=== PATIENT | female | born 1995 | race Caucasian/White ===

== ENCOUNTER 2018-06-28 15:49 | Emergency (ER) | payer OTHER ==
--- NOTE | 2018-06-28 16:04 | PDOC ---
Rapid Medical Evaluation Time Seen by Provider: 06/28/18 16:01 Medical Evaluation: 06/28/18 16:01 I have performed a brief in-person evaluation of this patient. The patient presents with a chief complaint of: abdominal pain x20 minutes 11 weeks gravid, Pertinent physical exam findings:NAD I have ordered the following:Beta HCG, CBC, CMP, PT, INR Type and Screen Discharge Disposition - Diagnosis Abdominal pain affecting - Referrals - Patient Instructions - Post Discharge Activity
[2018-06-28 16:05] VITALS: BMI 24.0
--- NOTE | 2018-06-28 16:36 | PDOC ---
History of Present Illness - General History Source: Patient - History of Present Illness Timing/Duration: reports: resolved prior to arrival <KaiaMickiTamiko - Last Filed: 06/28/18 18:08> <Blanco Flores - Last Filed: 07/01/18 19:51> - General Chief Complaint: Pain Stated Complaint: ABD PAIN 12WKS Time Seen by Provider: 06/28/18 16:01 Past History - Suicide/Smoking/Psychosocial Hx Smoking History: Never smoked Hx Alcohol Use: No Drug/Substance Use Hx: No <Micki MartiMariannaKaron - Last Filed: 06/28/18 18:08> <Blanco Flores - Last Filed: 07/01/18 19:51> - Past Medical History Allergies/Adverse Reactions: Allergies Allergy/AdvReac Type Severity Reaction Status Date / Time No Known Allergies Allergy Verified 06/28/18 16:01 Home Medications: Ambulatory Orders Nitrofurantoin Monohyd/M-Cryst [Macrobid -] 100 mg PO BID #14 capsule 06/28/18 Review of Systems - Review of Systems Constitutional: No: Chills, Fever ABD/GI: Yes: Abdominal cramping. No: Nausea, Vomiting : No: Burning, Dysuria, Discharge, Flank Pain, Hematuria <Micki MartiTamiko - Last Filed: 06/28/18 18:08> *Physical Exam - Vital Signs Last Vital Signs Temp Pulse Resp BP Pulse Ox 98.5 F 95 H 18 130/82 100 06/28/18 16:02 06/28/18 16:02 06/28/18 16:02 06/28/18 16:02 06/28/18 16:02 - Physical Exam General Appearance: Yes: Appropriately Dressed. No: Apparent Distress HEENT: positive: Normal Voice Neck: positive: Supple Gastrointestinal/Abdominal: positive: Soft. negative: Tender Musculoskeletal: negative: CVA Tenderness Integumentary: positive: Dry, Warm Neurologic: positive: Fully Oriented, Alert, Normal Mood/Affect <KaiaMickiTamiko - Last Filed: 06/28/18 18:08> - Vital Signs Last Vital Signs Temp Pulse Resp BP Pulse Ox 98.2 F 75 16 125/70 99 06/28/18 18:48 06/28/18 18:48 06/28/18 18:48 06/28/18 18:48 06/28/18 18:48 <Blanco Flores - Last Filed: 07/01/18 19:51> Moderate Sedation - Procedure Monitoring Vital Signs: Procedure Monitoring Vital Signs Temperature 98.5 F 06/28/18 16:02 Pulse Rate 95 H 06/28/18 16:02 Respiratory Rate 18 06/28/18 16:02 Blood Pressure 130/82 06/28/18 16:02 O2 Sat by Pulse Oximetry (%) 100 06/28/18 16:02 <January Marti - Last Filed: 06/28/18 18:08> ED Treatment Course - Medications Given in the ED: ED Medications Discontinued Medications Generic Name Dose Route Start Last Admin Trade Name Patrick PRN Reason Stop Dose Admin Acetaminophen 650 mg 06/28/18 16:37 06/28/18 17:48 Tylenol - PO 06/28/18 16:38 650 mg ONCE ONE Administration <Blanco Flores - Last Filed: 07/01/18 19:51> Medical Decision Making - Medical Decision Making 06/28/18 16:35 22 to F, , ~11 weeks , s/p last US 2 weeks ago in clinic w/ + IUP w / FHR per pt, no issues w/ so far, here with lower abdominal discomfort today at work that has since resolved. Reports no vaginal bleeding, dysuria, nausea, vomiting, fever or chills. Next OB appt is on 07/08/18 per pt See exam 1st trimester abd pain Since resolved +IUP w/ FHR on US 2 weeks ago per pt No vag bleed or dysuria Exam unremarkable here -check ua -anticipate dc w/ continued OB f/u 06/28/18 18:07 Pt declined to wait for her urine. Would like a call back at [phone]. Discharged in stable condition to f/u with her OB <January Marti - Last Filed: 06/28/18 18:08> *DC/Admit/Observation/Transfer <January Marti - Last Filed: 06/28/18 18:08> <Blanco Flores - Last Filed: 07/01/18 19:51> Diagnosis at time of Disposition: Abdominal pain affecting - Discharge Dispostion Disposition: HOME Condition at time of disposition: Good - Prescriptions Prescriptions: Nitrofurantoin Monohyd/M-Cryst [Macrobid -] 100 mg PO BID #14 capsule - Patient Instructions Printed Discharge Instructions: DI for Abdominal Pain -- Early Additional Instructions: You were seen for abdominal pain today that resolved prior to ED visit. We will contact you with urine results Please continue to follow-up with your OB
[2018-06-28] MEDS ORDERED: ACETAMINOPHEN 325 MG TABLET (FP) PO ONE (16:37)
[2018-06-28] MEDS ORDERED: ACETAMINOPHEN 325 MG TABLET (FP) ONE (17:34)
[2018-06-28 18:23] LABS: EPI CELLS 10.6 /HPF (0-5); HYALINE CASTS 8 /hpf (0-8); URINE APPEARANCE CLOUDY; URINE BACTERIA 504.216 /hpf (NEGATIVE); URINE BILIRUBIN NEGATIVE (<2.0 mg/dL); URINE COLOR YELLOW; URINE GLUCOSE (UA) NEGATIVE (NEGATIVE); URINE KETONE NEGATIVE (NEGATIVE); URINE LEUK ESTERASE 3+ (NEGATIVE); URINE NITRITE NEGATIVE (NEGATIVE); URINE PROTEIN NEGATIVE (NEGATIVE); URINE UROBILINOGEN 0.2 mg/dL (0.2-1.0); URINE WBC 123 /hpf (0-5)
[2018-06-28 18:45] LABS: URINE RBC 7.2 /hpf (0-4)
[2018-06-28 18:49] VITALS: BP 125/70; PULSE 75; TEMP 98.2
== END 2018-06-28 18:50 | disposition home or self-care (01) ==
LOC: JER 15:49
DX: O26.891 Other specified pregnancy related conditions, first trimester (principal); Z3A.12 12 weeks gestation of pregnancy; R10.9 Unspecified abdominal pain
CPT/HCPCS: 81003; 99282-25

== ENCOUNTER 2019-01-06 12:45 | Inpatient (IN) | payer OTHER ==
[2019-01-06 16:06] LABS: HEMATOCRIT 33.8 % (32.4-45.2); HEMOGLOBIN 11.1 GM/dL (10.7-15.3); MCH 27.6 pg (25.7-33.7); MCHC 32.9 g/dl (32.0-36.0); MEAN CELL VOLUME 83.8 fl (80-96); MEAN PLT VOLUME 9.7 fl (7.5-11.1); PLATELET COUNT 176 K/MM3 (134-434); RBC 4.03 M/mm3 (3.60-5.2); WHITE BLOOD COUNT 8.5 K/mm3 (4.0-10.0)
[2019-01-06 16:37] LABS: ALBUMIN 2.4 g/dl (3.4-5.0); BILIRUBIN,TOTAL 0.2 mg/dL (0.2-1); CALCIUM 8.5 mg/dL (8.5-10.1); CREATININE 0.3 mg/dL (0.55-1.3); POTASSIUM 4.1 mmol/L (3.5-5.1); TOT PROT 5.3 g/dl (6.4-8.2); URIC ACID 4.2 mg/dL (2.6-7.2)
[2019-01-06 17:02] LABS: URINE APPEARANCE TURBID; URINE COLOR DK YELLOW
[2019-01-06 17:03] LABS: URINE BILIRUBIN 2+ (NEGATIVE); URINE GLUCOSE (UA) 2+ (NEGATIVE); URINE KETONE TRACE (NEGATIVE)
[2019-01-06 17:04] LABS: URINE NITRITE NEGATIVE (NEGATIVE); URINE PROTEIN 4+ (NEGATIVE)
[2019-01-06 17:05] LABS: EPI CELLS 38.6 /HPF (0-5/HPF); HYALINE CASTS 461.91 /lpf (0-8); URINE BACTERIA 473.8 /hpf (NEGATIVE); URINE LEUK ESTERASE 1+ (NEGATIVE); URINE RBC 7.9 /hpf (0-4); URINE WBC 158.1 /hpf (0-5); YEAST NONE SEEN (NEGATIVE)
[2019-01-06] MEDS ORDERED: LABETALOL HCL 200 MG TABLET (FP) PO SCH (18:00)
[2019-01-06] MEDS ORDERED: FLUCONAZOLE 150 MG TABLET PO ONE (18:00)
--- NOTE | 2019-01-06 18:11 | HP ---
Past Medical History - Primary Care Physician PCP:: Raimundo Puentes (uncovered patient) - Admission Chief Complaint: Patient presenting for rule out labor History of Present Illness: She reports mild headache and leg swelling for the last 2 weeks. She denies LOF , VB and RUQ pain History Source: Patient Limitations to Obtaining History: No Limitations - Past Medical History OPERATIONS/DISPATCH: No: Alzheimer's, CVA, Dementia, Migraine, Multiple Sclerosis, Peripheral Neuropathy, Parkinson's, Seizure, Syncope, TIA, Vertigo, Other Cardiovascular: No: AFIB, Aneurysm, Aortic Insufficiency, Aortic Stenosis, CAD, CHF, Deep Vein Thrombosis, HTN, Hyperlipdemia, ID, Mitral Insufficiency, Mitral Stenosis, Murmur, Pulmonary Hypertension, Other Pulmonary: No: Asthma, Bronchitis, Cancer, COPD, O2 Dependent, Pneumonia, Previously Intubated, Pulmonary Embolus, Pulmonary Fibrosis, Sleep Apnea, Other Gastrointestinal: No: Ascites, Cancer, Constipation, Crohn's Disease, Diverticulitis, Diverticulosis, Esophageal Varices, Gastritis, GERD, GI Bleed, Hemorrhoids, Hiatal Hernia, Inflamatory Bowel Disease, Irritable Bowel Disease, Pancreatitis, Peptic Ulcer Disease, Ulcerative Colitis, Other Hepatobiliary: No: Cirrhosis, Cholelithiasis, Cholecystitis, Choledocholithiasis , Hepatitis A, Hepatitis B, Hepatitis C, Other Renal/: No: Renal Failure, Renal Inusuff, BPH, Cancer, Hematuria, Hemodialysis , Neurogenic Bladder, Renal Calculi, UTI, Other Reproductive: No: Ectopic , Endometriosis, Fibroids, PID, Polycystic Ovary Syndrome, Postmenopausal, Other ...: 2 ...Para: 0 ...Term: 0 ...: 0 ...Spon : 0 ...Induced : 1 ...LMP: 04/13/18 ... Weeks Gestation by Dates: 38.2 ...EDC by Dates: 01/18/19 ...EDC by Sono: 01/17/19 Heme/Onc: No: Anemia, B12 Deficiency, Bleeding Disorder, Cancer, Current Chemotherapy, Current Radiation Therapy, Hemochromatosis, Hypercoaguable State, Myeloproliferative Synd, Sickle Cell Disease, Sickle Cell Trait, Thrombocytopenia, Other Infectious Disease: No: AIDS, C-Diff, Herpes Zoster, HIV, MRSA, STD's, Tuberculosis, VREF, Other Psych: No: Addictions, Anxiety, Bipolar, Depression, Panic, Psychosis, Schizophrenia, Other Musculoskeletal: No: Bursitis, Chronic low back pain, Hemiparesis, Hemiplegia, Osteoarthritis, Paraplegia, Other Rheumatology: No: Fibromyalgia, Gout, Lupus, Rheumatoid Arthritis, Sarcoidosis, Vasculitis, Other ENT: No: Allergic Rhinitis, Sinusitis, Other Endocrine: No: Swain's Disease, Miranda's Disease, Diabetes Insipidus, Diabetes Mellitus, Hyperparathyroidism, Hyperthyroidism, Hypothyroidism, Osteopenia, SIADH, Other Dermatology: No: Basal Cell, Cellulitis, Eczema, Melanoma, Psoriasis, Squamous Cell, Other - Past Surgical History Hx Myomectomy: No Hx Transabdominal Cerclage: No Additional Surgical History: liposuction - Smoking History Smoking history: Never smoked - Alcohol/Substance Use Hx Alcohol Use: No History of Substance Use: reports: None Home Medications - Allergies Allergies/Adverse Reactions: Allergies Allergy/AdvReac Type Severity Reaction Status Date / Time No Known Allergies Allergy Verified 01/06/19 13:47 - Home Medications Home Medications: Ambulatory Orders Vits96/Iron Fum/Folic [ Tablet] 1 tab PO DAILY 01/06/19 Family Medical History Family History: Unremarkable Review of Systems - Review of Systems Constitutional: reports: No Symptoms Eyes: reports: No Symptoms HENT: reports: Nasal Congestion, Other (headache) Neck: reports: No Symptoms Cardiovascular: reports: No Symptoms Respiratory: reports: No Symptoms Gastrointestinal: reports: No Symptoms Genitourinary: reports: No Symptoms Breasts: reports: No Symptoms Reported Musculoskeletal: reports: No Symptoms, Other (lE edema) Integumentary: reports: No Symptoms Neurological: reports: No Symptoms Endocrine: reports: No Symptoms Hematology/Lymphatic: reports: No Symptoms Psychiatric: reports: No Symptoms Physical Exam - Maternity Vital Signs: Vital Signs Temperature 98.0 F 01/06/19 13:34 Pulse Rate 89 01/06/19 17:04 Respiratory Rate 18 01/06/19 17:04 Blood Pressure 159/127 H 01/06/19 17:04 O2 Sat by Pulse Oximetry (%) Constitutional: Yes: Calm HENT: Yes: Atraumatic Neck: Yes: Supple Cardiovascular: Yes: Regular Rate and Rhythm Breast(s): Yes: Other - Abdominal Exam/OB Number of Fetuses: Single Presentation: Vertex Contractions: No Regularity: Irritability Monitor Mode: External Heart Rate (range): 130 Category: I Accelerations: Uniform Decelerations: None - Vaginal Exam/OB Vaginal Bleediing: No Speculum Exam: Yes (swabs obtained, suspicious for theron) Dilatation (cm): 1 Effacement (%): 30 Amniotic Membrane Status: Intact Presentation: Vertex/Position (sutures palpated, ballotable) Station: -3 - Physical Exam Musculoskeletal: Yes: WNL Extremities: Yes: WNL Edema: Yes Edema: LLE: 2+, RLE: 2+ Integumentary: Yes: WNL Deep Tendon Reflex Grade: Normal +2 ...Motor Strength: WNL Psychiatric: Yes: Alert, Oriented - Labs Lab Results: CBC, BMP 01/06/19 15:00 01/06/19 15:00 Imaging - Results Ultrasound: Report Reviewed Assessment/Plan 23 y/o @ 38.2wks by LMP consistent with 1st trimeter ultrasound, not in active labor, uncovered patient. Partial records and poor historian. Labile BP on admission, mild headache and LE edema, proteinuria. Patient was counseled regarding IOL and its risks and complication. Hypertensive disordered of explained as indication for induction . -labetalol 200 BI -diflucan -BP monitoring -IOL with cytotec PO
[2019-01-06] MEDS: ELECTROLYTE-148 SOLN 1,000 ML IV SCH (18:20)
[2019-01-06 18:43] VITALS: BMI 23.6
[2019-01-06] MEDS: MISOPROSTOL 25 MCG TABLET (COMPOUNDED BY PHARMACY) PO SCH (21:40)
[2019-01-06 23:37] LABS: COCAINE, UR NEGATIVE ng/ml (CUTOFF=300); METHADONE, UR NEGATIVE ng/ml (CUTOFF=300); OPIATES, URI NEGATIVE ng/ml (CUTOFF=300); PHENCYCLIDINE,URINE NEGATIVE ng/ml (CUTOFF=25); URINE BARBITURATES NEGATIVE ng/ml (CUTOFF=200); URINE BENZODIAZEPINES NEGATIVE ng/ml (CUTOFF=200)
[2019-01-07 00:06] LABS: URINE AMPHETAMINES POSITIVE ng/ml (CUTOFF=500)
[2019-01-07] MEDS: MISOPROSTOL 25 MCG TABLET (COMPOUNDED BY PHARMACY) PO SCH ×3 (01:40→09:35)
[2019-01-07] MEDS ORDERED: LABETALOL HCL 200 MG TABLET (FP) ONE (04:33)
[2019-01-07] MEDS ORDERED: BUTORPHANOL TARTRATE 1 MG/ML VIAL ONE ×2 (05:07)
[2019-01-07] MEDS ORDERED: BUTORPHANOL TARTRATE 1 MG/ML VIAL IVPB ONE (05:45)
[2019-01-07] MEDS: ELECTROLYTE-148 SOLN 1,000 ML IV SCH ×2 (06:00→09:36)
[2019-01-07] MEDS: LABETALOL HCL 200 MG TABLET (FP) PO SCH ×2 (06:00→17:09)
--- NOTE | 2019-01-07 08:09 | PN ---
Ante-Partal Exam - Subjective Subjective: Patient evaluated for pain Vital Signs: Vital Signs Temperature 98.1 F 01/07/19 07:00 Pulse Rate 85 01/07/19 06:00 Respiratory Rate 20 01/07/19 06:00 Blood Pressure 135/92 01/07/19 06:00 O2 Sat by Pulse Oximetry (%) Bleeding: No Headache: No Visual changes: No Right upper quadrant pain: No - Contractions Contractions: Yes Regularity: Regular Intensity: Strong Monitor Mode: External - Exam during Labor Heart Rate: 130 (cat I) Variability: Moderate Category: I Monitor Accelerations: Present Monitor Decelerations: None Exam: Vaginal Dilatation (cm): 6 Effacement (%): 90 Amniotic Membrane Status: Bulging Presentation: Vertex Station: -3 - Assessment/Plan Assessment/Plan: 23 y/o @ 38.3wks, IOL due to mild PEC, asymptomatic, BP in normal to mild range, reassuring status, desiring epidural. -Epidural is OK -Expectant management -Patient signed out to covering attending
[2019-01-07] MEDS ORDERED: FENTANYL/BUPIVACAINE/NS/PF - PCEA - 50 ML DISP.SYRIN EP ONE ×2 (08:27→13:34)
[2019-01-07] MEDS ORDERED: NALOXONE HCL 0.4 MG/ML VIAL IVPUSH PRN (08:28)
[2019-01-07 08:42] LABS: HEMATOCRIT 33.6 % (32.4-45.2); MCH 27.5 pg (25.7-33.7); MCHC 32.6 g/dl (32.0-36.0); MEAN CELL VOLUME 84.1 fl (80-96); MEAN PLT VOLUME 9.6 fl (7.5-11.1); PLATELET COUNT 208 K/MM3 (134-434); RBC 3.99 M/mm3 (3.60-5.2); RDW 14.3 % (11.6-15.6); WHITE BLOOD COUNT 13.3 K/mm3 (4.0-10.0)
[2019-01-07] MEDS: FENTANYL/BUPIVACAINE/NS/PF - PCEA - 50 ML DISP.SYRIN EP SCH (09:15)
--- NOTE | 2019-01-07 09:25 | PN ---
Progress Note (short form) - Note Progress Note: utility manager requested repeat CBC prior to epidural. Discussion regarding elevated BPs due to likely pain had with anesthesiologist. BPs will be monitored after epidural.
--- NOTE | 2019-01-07 13:27 | PN ---
Progress Note, Labor Vaginal Exam #3 Labor Exam Date: 01/07/19 Labor Exam Time: 13:26 Heart Rate (range): Cat I Dilatation: 9 Effacement (%): 100 Amniotic Membrane Status: Ruptured Presentation: Vertex/Position Station: 0 Remarks: Pt comfortable AROM, clears Anticipate Stevie Masters MD
[2019-01-07] MEDS ORDERED: OXYTOCIN 20 UNITS in 0.9% NS 20 UNIT/1,000 ML INFUS.BAG IV ONE ×2 (14:20→15:58)
[2019-01-07] MEDS: OXYTOCIN 20 UNITS in 0.9% NS 20 UNIT/1,000 ML INFUS.BAG IV SCH ×2 (14:25→16:01)
[2019-01-07] MEDS ORDERED: BISACODYL 10 MG SUPP.RECT RC PRN (14:32)
[2019-01-07] MEDS ORDERED: BENZOCAINE 28 GM HEMORRHOIDAL OINTMENT TP PRN (14:32)
[2019-01-07] MEDS ORDERED: IBUPROFEN 600 MG TABLET (FP) PO PRN (14:32)
[2019-01-07] MEDS ORDERED: BENZOCAINE 20% 57 GM BOTTLE TP PRN (14:32)
[2019-01-07] MEDS ORDERED: WITCH HAZEL 50% (TUCKS) 40 PAD/JAR PAD TP PRN (14:32)
[2019-01-07] MEDS ORDERED: METHYLERGONOVINE MALEATE 0.2 MG/1 ML AMP IM PRN (14:32)
--- NOTE | 2019-01-07 14:32 | PN ---
Delivery - Delivery Vaginal Delivery: Spontaneous Type of Anesthesia: Epidural Episiotomy/Laceration: None EBL (cc): 250 Delivery, Single - Condition of Infant Junior Electrical Engineer/Pound Attendant Present: No Gender: Male Position: Left, OA - 1 Minute Total Score: 9 5 Minutes Total Score: 9 - [place] Feeding Plan Initial Plan: Exclusive throughout hospitalization Remarks - Remarks Remarks: of VMI from BIPIN position. Intact perineum. Epidural anesthesia. Nuchal x 2 delivered through. Spontaneous delivery of anterior shoulder. Cord clamped and cut. Infant handed off. Apgars 9/9. Weight pending. Spontaneous delivery of intact placenta, 3VC. Fundus firm. Perineum inspected, no lacerations. EBL 250ml. Mother and baby doing well. Berenice Masters MD
[2019-01-07] MEDS ORDERED: ACETAMINOPHEN 325 MG TABLET (FP) ONE (15:26)
[2019-01-07] MEDS: ACETAMINOPHEN 325 MG TABLET (FP) PO PRN (15:28)
[2019-01-08] MEDS: LABETALOL HCL 200 MG TABLET (FP) PO SCH ×2 (05:53→17:11)
[2019-01-08 07:18] LABS: BASO % 0.2 % (0-2.0); EOS % 0.8 % (0-4.5); HEMATOCRIT 28.9 % (32.4-45.2); HEMOGLOBIN 9.4 GM/dL (10.7-15.3); LYMPH % 17.6 % (8-40); MCH 27.6 pg (25.7-33.7); MCHC 32.5 g/dl (32.0-36.0); MEAN CELL VOLUME 84.8 fl (80-96); MEAN PLT VOLUME 9.8 fl (7.5-11.1); MONO % 9.9 % (3.8-10.2); NEUT % 71.5 % (42.8-82.8); PLATELET COUNT 171 K/MM3 (134-434); RBC 3.41 M/mm3 (3.60-5.2); RDW 14.3 % (11.6-15.6); WHITE BLOOD COUNT 10.4 K/mm3 (4.0-10.0)
--- NOTE | 2019-01-08 08:39 | PN ---
Post Progress Note - Subjective Subjective: no c/o headache cramps less Post Day: 1 Type of Delivery: Vital Signs: Vital Signs Temperature 98.6 F 01/08/19 05:52 Pulse Rate 88 01/08/19 05:52 Respiratory Rate 18 01/08/19 05:52 Blood Pressure 131/99 01/08/19 05:52 O2 Sat by Pulse Oximetry (%) 100 01/07/19 15:45 Breast Exam: Yes: Soft, Other (will try to BF ). No: Engorged Uterus: Yes: Fundus Firm, Fundus below umbilicus, Non-tender Lochia: Yes: Rubra Lochia, amount: Moderate Extremities: Yes: Calves non-tender Perineum: Yes: Intact, Laceration Activity: Ambulating - Labs Labs: CBC WBC 10.4 K/mm3 (4.0-10.0) H 01/08/19 06:19 RBC 3.41 M/mm3 (3.60-5.2) L 01/08/19 06:19 Hgb 9.4 GM/dL (10.7-15.3) L 01/08/19 06:19 Hct 28.9 % (32.4-45.2) L 01/08/19 06:19 MCV 84.8 fl (80-96) 01/08/19 06:19 MCH 27.6 pg (25.7-33.7) 01/08/19 06:19 MCHC 32.5 g/dl (32.0-36.0) 01/08/19 06:19 RDW 14.3 % (11.6-15.6) 01/08/19 06:19 Plt Count 171 K/MM3 (134-434) 01/08/19 06:19 MPV 9.8 fl (7.5-11.1) 01/08/19 06:19 Absolute Neuts (auto) 7.5 K/mm3 (1.5-8.0) 01/08/19 06:19 Neutrophils % 71.5 % (42.8-82.8) 01/08/19 06:19 Lymphocytes % 17.6 % (8-40) 01/08/19 06:19 Monocytes % 9.9 % (3.8-10.2) 01/08/19 06:19 Eosinophils % 0.8 % (0-4.5) 01/08/19 06:19 Basophils % 0.2 % (0-2.0) 01/08/19 06:19 Nucleated RBC % 0 % (0-0) 01/08/19 06:19 Problem List - Problems (1) Encounter for care and examination after delivery Code(s): Z39.2 - ENCOUNTER FOR ROUTINE FOLLOW-UP Assessment/Plan stable anemia pt on po labetalol 200 mg bid , bp controlled ct pp care
[2019-01-08] MEDS ORDERED: FLU VACCINE QUAD 60 MCG/0.5 ML (MDV 19-20) IM ONE (10:00)
[2019-01-08] MEDS ORDERED: DIPHTH,PERTUSS(ACELL),TET 0.5 ML DISP.SYRIN IM ONE (10:00)
[2019-01-08] MEDS ORDERED: FLU VACC QS2019-20(6MOS UP)/PF 60 MCG/0.5 ML SYRINGE IM ONE (10:00)
[2019-01-08] MEDS: PRENATAL VITAMINS W/ FOLIC ACID TABLET (FP) PO SCH (10:43)
[2019-01-08] MEDS: OXYTOCIN 20 UNITS in 0.9% NS 20 UNIT/1,000 ML INFUS.BAG IV SCH (16:29)
[2019-01-08] MEDS: ACETAMINOPHEN 325 MG TABLET (FP) PO PRN (21:10)
[2019-01-08] MEDS ORDERED: SENNOSIDES/DOCUSATE COMBO (SENNA PLUS) TABLET (UD) PO PRN (22:00)
[2019-01-09] MEDS ORDERED: LABETALOL HCL 200 MG TABLET (FP) PO SCH (06:45)
--- NOTE | 2019-01-09 08:05 | PN ---
Post Progress Note - Subjective Subjective: Pain controlled. Bleeding c/w lochia Type of Delivery: Vital Signs: Vital Signs Temperature 98.7 F 01/09/19 06:00 Pulse Rate 95 H 01/09/19 06:00 Respiratory Rate 20 01/09/19 06:00 Blood Pressure 143/103 H 01/09/19 06:00 O2 Sat by Pulse Oximetry (%) 100 01/07/19 15:45 Uterus: Yes: Fundus below umbilicus Abdomen/GI: Yes: Abdomen soft, Tolerating PO Lochia: Yes: Rubra Lochia, amount: Small Extremities: Yes: Calves non-tender Perineum: Yes: Intact Activity: Ambulating - Labs Labs: CBC WBC 10.4 K/mm3 (4.0-10.0) H 01/08/19 06:19 RBC 3.41 M/mm3 (3.60-5.2) L 01/08/19 06:19 Hgb 9.4 GM/dL (10.7-15.3) L 01/08/19 06:19 Hct 28.9 % (32.4-45.2) L 01/08/19 06:19 MCV 84.8 fl (80-96) 01/08/19 06:19 MCH 27.6 pg (25.7-33.7) 01/08/19 06:19 MCHC 32.5 g/dl (32.0-36.0) 01/08/19 06:19 RDW 14.3 % (11.6-15.6) 01/08/19 06:19 Plt Count 171 K/MM3 (134-434) 01/08/19 06:19 MPV 9.8 fl (7.5-11.1) 01/08/19 06:19 Absolute Neuts (auto) 7.5 K/mm3 (1.5-8.0) 01/08/19 06:19 Neutrophils % 71.5 % (42.8-82.8) 01/08/19 06:19 Lymphocytes % 17.6 % (8-40) 01/08/19 06:19 Monocytes % 9.9 % (3.8-10.2) 01/08/19 06:19 Eosinophils % 0.8 % (0-4.5) 01/08/19 06:19 Basophils % 0.2 % (0-2.0) 01/08/19 06:19 Nucleated RBC % 0 % (0-0) 01/08/19 06:19 Assessment/Plan 23yo s/p c/b PEC, PPD#2 Routine PP care BPs still elevated despite Labetalol 200mg BID; will increase to 300mg BID Discharge home PPD#3 Stevie Masters MD
[2019-01-09] MEDS: PRENATAL VITAMINS W/ FOLIC ACID TABLET (FP) PO SCH (09:43)
[2019-01-09] MEDS: LABETALOL HCL 100 MG TABLET (FP) PO SCH ×2 (09:43→23:17)
[2019-01-09] MEDS: ACETAMINOPHEN 325 MG TABLET (FP) PO PRN (22:06)
--- NOTE | 2019-01-10 07:57 | PN ---
Progress Note (short form) - Note Progress Note: ppd 3 s/p , with HTN, no headache, no blurred vision , no RUQ pain, on labetalol CBC, BMP 01/08/19 06:19 soft= 01/06/19 15:00 Last Vital Signs Temp Pulse Resp BP Pulse Ox 97.5 F L 82 18 150/90 100 01/10/19 05:00 01/10/19 05:00 01/10/19 05:00 01/10/19 05:00 01/07/19 15:45 abdomen soft, no RUQ tenderness uterus firm, non tender lochia mild no calf tenderness impression HTN ,on ;labetalol 300 bid , bp still elevated , will obtain medical consult for revaluation
[2019-01-10] MEDS: PRENATAL VITAMINS W/ FOLIC ACID TABLET (FP) PO SCH (10:00)
[2019-01-10] MEDS: LABETALOL HCL 100 MG TABLET (FP) PO SCH (10:00)
[2019-01-10] MEDS ORDERED: NIFEdipine E.R. 30 MG TABLET (FP) ONE (10:42)
--- NOTE | 2019-01-10 12:26 | CONSULT ---
Consult - text type - Consultation Consultation Note: Renal consult for hypertension This is a 23 year old woman who presented at 38 weeks gestation with labor pains now s/p induction and vaginal dilivery with hypertension. Pt denies any piror history of hypertension or elevated BP's during . Denies having proteinuira during her . Currently denies any ZAPIEN, chest pain, shortness of breath, abd pain, N/V. Making urine. s/ p Labetalol and Nifedpine ER. No leg swelling. PMHx: as above Allergies: NKDA Family Hx: Father with hypertension Social hx: No T/A/D ROS: as per HPI, all other pertinent ros negative Home Medications Medication Instructions Recorded Vits96/Iron Fum/Folic 1 tab PO DAILY 01/06/19 [ Tablet] Ibuprofen 600 mg PO Q6H PRN #30 tablet 01/09/19 Labetalol HCl [Normodyne -] 300 mg PO BID #28 tablet 01/09/19 Vital Signs Temperature 98.3 F 01/10/19 09:00 Pulse Rate 95 H 01/10/19 09:00 Respiratory Rate 17 01/10/19 09:00 Blood Pressure 155/124 H 01/10/19 10:35 O2 Sat by Pulse Oximetry (%) 100 01/07/19 15:45 Intake & Output 01/07/19 01/08/19 01/09/19 01/10/19 23:59 23:59 23:59 23:59 Intake Total 1550 1000 Output Total 1250 1300 Balance 300 -300 NAD awake and alert necks supple No LE edema CBC, BMP 01/08/19 06:19 01/06/19 15:00 Laboratory Tests 01/06/19 01/06/19 01/06/19 13:50 14:35 15:00 Plt Count AST 13 L ALT 13 Urine Protein 4+ H Urine Glucose (UA) 2+ H Urine Blood 1+ H Urine Bilirubin 2+ H Ur Leukocyte Esterase 1+ H Protein/Creatinin Ratio 1.8 01/08/19 06:19 Plt Count 171 AST ALT Urine Protein Urine Glucose (UA) Urine Blood Urine Bilirubin Ur Leukocyte Esterase Protein/Creatinin Ratio Current Medications Acetaminophen (Tylenol -) 650 mg PO Q3H PRN PRN Reason: PAIN Last Admin: 01/09/19 22:06 Dose: 650 mg Benzocaine (Americaine 20% Otis -) 1 spray TP PRN PRN PRN Reason: PAIN Benzocaine (Americaine Ointment -) 1 applic TP PRN PRN PRN Reason: PAIN Bisacodyl (Dulcolax Suppository -) 10 mg RC PRN PRN PRN Reason: CONSTIPATION Ibuprofen (Motrin -) 600 mg PO Q4H PRN PRN Reason: PAIN Last Admin: 01/09/19 22:07 Dose: 600 mg Labetalol HCl (Normodyne -) 300 mg PO Q6H PRN PRN Reason: HYPERTENSION Methylergonovine Maleate (Methergine Injection -) 0.2 mg IM Q4H PRN PRN Reason: EXCESSIVE BLEEDING (L&D) Naloxone HCl (Narcan -) 0.4 mg IVPUSH PRN PRN PRN Reason: Sedation Nifedipine (Procardia Xl -) 30 mg PO DAILY [facility] Multivit/Folic Acid/Iron ( Vitamins (Sjr) -) 1 tab PO DAILY [facility] Last Admin: 01/10/19 10:00 Dose: 1 tab Senna/Docusate Sodium (Pericolace -) 2 tablet PO HS PRN PRN Reason: CONSTIPATION Witch Roxanne/Glycerin (Tucks Pads -) 1 pad TP PRN PRN PRN Reason: PAIN 23 year old woman who presented at 38 weeks gestation with labor pains now s/p induction and vaginal dilivery with hypertension. 1. hypertension secondary to preeclampisa without evidence of HELLP syndrome 2. s/p vaginal delivery Continue Nifedpine ER 30mg Daily Use Labetalol 300mg Q6h PRN for SBP > 150 or DBP > 100 Low salt diet pain control minimize NSAID use pt will likely need to be discharged on oral antihypertensive medications but would monitor for 24 hours to ensure good BP control Thank you Daniel Escamilla DO
[2019-01-10] MEDS: FENTANYL/BUPIVACAINE/NS/PF - PCEA - 50 ML DISP.SYRIN EP SCH ×2 (15:42→15:47)
[2019-01-10 17:05] LABS: URINE CREATININE < 13.0 mg/dL (20-275)
[2019-01-10] MEDS: LABETALOL HCL 100 MG TABLET (FP) PO PRN (17:24)
[2019-01-10] MEDS ORDERED: NIFEdipine E.R. 30 MG TABLET (FP) PO ONE (19:00)
[2019-01-10] MEDS: ACETAMINOPHEN 325 MG TABLET (FP) PO PRN (23:36)
[2019-01-11] MEDS: ACETAMINOPHEN 325 MG TABLET (FP) PO PRN (05:01)
[2019-01-11] MEDS ORDERED: NIFEdipine E.R. 30 MG TABLET (FP) PO SCH ×2 (10:00)
[2019-01-11] MEDS: PRENATAL VITAMINS W/ FOLIC ACID TABLET (FP) PO SCH (10:42)
[2019-01-11] MEDS: LABETALOL HCL 100 MG TABLET (FP) PO PRN (15:37)
--- NOTE | 2019-01-11 16:41 | PN ---
Progress Note (short form) - Note Progress Note: RENAL BP's reviewed Last Vital Signs Temp Pulse Resp BP Pulse Ox 98.5 F 108 H 20 150/96 100 01/11/19 14:00 01/11/19 14:00 01/11/19 14:00 01/11/19 14:00 01/07/19 15:45 CBC, BMP 01/08/19 06:19 01/06/19 15:00 Pt received procardia xl 60 mg and her blood pressure was 151/109 then 150/96. She can be discharged with this blood pressure. I called pharmacy and ordered the procardia xl 60 mg daily. Gave her 14 days supply. She can follow up with Dr Escamilla this week. She already had labetalol in the pharmacy which I suggested be given prn 300 mg BID MV
[2019-01-11 17:38] VITALS: BP 141/84; PULSE 105; TEMP 98
== END 2019-01-11 19:05 | disposition home or self-care (01) | DRG 560 ==
LOC: JDEL 12:45 → JLDR 17:35 → J3W 01-07 16:25
PROVIDERS: ADMIT Student in an Organized Health Care Education/Training Program; ATTEND Student in an Organized Health Care Education/Training Program
PROC: 10E0XZZ Delivery of Products of Conception, External Approach (ICD-10-PCS; principal; 2019-01-07)
DX: O14.93 Unspecified pre-eclampsia, third trimester (principal); O13.3 Gestational [pregnancy-induced] hypertension without significant proteinuria, third trimester; Z3A.38 38 weeks gestation of pregnancy; Z37.0 Single live birth
CPT/HCPCS: 36415; 59409; 80053; 80307; 81003; 82570; 84156; 84550; 85025; 85027; 86593; 86850; 86900; 86901; 87081; 87389; 87491; 87591; 87661; 90686; 90715; G0480

== ENCOUNTER 2019-01-13 16:05 | Inpatient (IN) | payer OTHER ==
[2019-01-13 16:11] VITALS: BMI 25.9
--- NOTE | 2019-01-13 16:26 | PDOC ---
History of Present Illness - General Chief Complaint: Blood Pressure Problem Stated Complaint: Blood Pressure Problem post 01/07/19 - History of Present Illness Initial Comments: 01/13/19 16:25 Ms. Dutta is a 23 yo female w/ pmh of known hypertension following induction and vaginal delivery 01/07. Patient has no other pmh and was evaluated for abdominal pain 01/07 at 38.2 wks LMP with subsequent induction for noted labile BP w/ headache, LE edema, and proteinuria. Patient delivered w/out difficulty and patient discharged following BP reduction to 150/96. Patient presents today as she was sent over by nephrology. Currently remains symptom free at this time. The patient denies chest pain, shortness of breath, headache and dizziness. Denies fever, chills, nausea, vomit, diarrhea and constipation. Denies dysuria, frequency, urgency and hematuria. Past History - Past Medical History Allergies/Adverse Reactions: Allergies Allergy/AdvReac Type Severity Reaction Status Date / Time No Known Allergies Allergy Verified 01/13/19 16:11 Home Medications: Ambulatory Orders Vits96/Iron Fum/Folic [ Tablet] 1 tab PO DAILY 01/06/19 Ibuprofen 600 mg PO Q6H PRN #30 tablet 01/09/19 Labetalol HCl [Normodyne -] 300 mg PO BID #28 tablet 01/09/19 Asthma: No Cancer: No Cardiac Disorders: No COPD: No Diabetes: No HTN: No Seizures: No Thyroid Disease: No - Psycho Social/Smoking Cessation Hx Smoking History: Never smoked Have you smoked in the past 12 months: No Information on smoking cessation initiated: No Hx Alcohol Use: No Drug/Substance Use Hx: No Hx Substance Use Treatment: No Review of Systems - Review of Systems Comments:: 01/13/19 16:34 GENERAL/CONSTITUTIONAL: No fever or chills. No weakness. HEAD, EYES, EARS, NOSE AND THROAT: No change in vision. No ear pain or discharge. No sore throat. CARDIOVASCULAR: No chest pain or shortness of breath RESPIRATORY: No cough, wheezing, or hemoptysis. GASTROINTESTINAL: No nausea, vomiting, diarrhea or constipation. GENITOURINARY: No dysuria, frequency, or change in urination. MUSCULOSKELETAL: No joint or muscle swelling or pain. No neck or back pain. SKIN: No rash NEUROLOGIC: No headache, vertigo, loss of consciousness, or change in strength/ sensation. ENDOCRINE: No increased thirst. No abnormal weight change HEMATOLOGIC/LYMPHATIC: No anemia, easy bleeding, or history of blood clots. ALLERGIC/IMMUNOLOGIC: No hives or skin allergy. *Physical Exam - Vital Signs Last Vital Signs Temp Pulse Resp BP Pulse Ox 98.4 F 87 19 175/117 H 99 01/13/19 16:08 01/13/19 16:08 01/13/19 16:08 01/13/19 16:08 01/13/19 16:08 - Physical Exam Comments: 01/13/19 16:34 GENERAL: Awake, alert, and fully oriented, in no acute distress HEAD: No signs of trauma, normocephalic, atraumatic EYES: PERRLA, EOMI, sclera anicteric, conjunctiva clear ENT: Auricles normal inspection, hearing grossly normal, nares patent, oropharynx clear without exudates. Moist mucosa NECK: Normal ROM, supple, no lymphadenopathy, JVD, or masses LUNGS: No distress, speaks full sentences, clear to auscultation bilaterally HEART: Regular rate and rhythm, normal S1 and S2, no murmurs, rubs or gallops, peripheral pulses normal and equal bilaterally. ABDOMEN: Soft, nontender, normoactive bowel sounds. No guarding, no rebound. No masses EXTREMITIES: +TASIA lower extremity swelling. Otherwise normal inspection, Normal range of motion. No clubbing or cyanosis. NEUROLOGICAL: Cranial nerves II through XII grossly intact. Normal speech, normal gait, no focal sensorimotor deficits SKIN: Warm, Dry, normal turgor, no rashes or lesions noted. ED Treatment Course - LABORATORY CBC & Chemistry Diagram: 01/13/19 16:47 01/13/19 16:47 Medical Decision Making - Medical Decision Making 01/13/19 16:48 Ms. Dutta is a 23 yo female w/ pmh as described who presents for evaluation of hypertension. Workup started accordingly. 01/13/19 17:12 Discussed patient with Linting Machine Operator Dr. Escamilla who provided additional: Patient discharged with PO nifedipine Rx however had not filled until today (Had not taken it upon evaluation). Patient noted to have elevated BP to 176/130 in office - given home dose of nifedipine however no change in BP noted in office and patient sent to ED for further BP treatment as needed. Patient ok for discharge and outpatient follow-up at previously scheduled appointment this (01/16) provided no signs of end organ damage and reduction of BP below 160/100. Patient given 10mg IV labetalol with this goal in mind. 01/13/19 18:03 Discussed patient with covering ELECTRICIAN CHIEF Dr. Puentes who believes patient safe for outpatient follow-up tomorrow provided no acute findings. 01/13/19 18:46 Patient BP steady; labetalol 20mg given for further BP control. BP remains elevated. 01/13/19 18:57 Discussed patient again w/ Nephrology who requests 200mg PO labetolol and repeat evaluation. 01/13/19 19:11 Repeated discussion with ELECTRICIAN CHIEF who will admit for further BP management. Discharge - Discharge Information Problems reviewed: Yes Clinical Impression/Diagnosis: hypertension - Admission Yes - Follow up/Referral Referrals: Daniel Escamilla MD [Primary Care Provider] - Raimundo Puentes MD [Staff Physician] - - Patient Discharge Instructions - Post Discharge Activity
[2019-01-13 16:58] LABS: BASO % 0.7 % (0-2.0); EOS % 4.9 % (0-4.5); HEMATOCRIT 38.1 % (32.4-45.2); HEMOGLOBIN 12.4 GM/dL (10.7-15.3); MCH 27.6 pg (25.7-33.7); MCHC 32.4 g/dl (32.0-36.0); MEAN CELL VOLUME 85.1 fl (80-96); MEAN PLT VOLUME 8.1 fl (7.5-11.1); MONO % 6.8 % (3.8-10.2); NEUT % 65.6 % (42.8-82.8); PLATELET COUNT 327 K/MM3 (134-434); RBC 4.48 M/mm3 (3.60-5.2); RDW 14.8 % (11.6-15.6); WHITE BLOOD COUNT 8.1 K/mm3 (4.0-10.0)
[2019-01-13] MEDS ORDERED: LABETALOL HCL 5 MG/1 ML (100MG/20 ML VIAL) IVPUSH ONE ×2 (16:59→18:14)
[2019-01-13] MEDS ORDERED: LABETALOL HCL 5 MG/1 ML (200MG/40ML VIAL) IVPB ONE (17:29)
[2019-01-13 17:38] LABS: EPI CELLS 2.4 /HPF (0-5/HPF); HYALINE CASTS 1 /lpf (0-8); URINE APPEARANCE CLEAR; URINE BILIRUBIN NEGATIVE (NEGATIVE); URINE COLOR YELLOW; URINE GLUCOSE (UA) NEGATIVE (NEGATIVE); URINE KETONE NEGATIVE (NEGATIVE); URINE LEUK ESTERASE TRACE (NEGATIVE); URINE NITRITE NEGATIVE (NEGATIVE); URINE PROTEIN 3+ (NEGATIVE); URINE RBC 61 /hpf (0-4); URINE UROBILINOGEN 0.2 mg/dL (0.2-1.0); URINE WBC 9 /hpf (0-5)
[2019-01-13 17:48] LABS: ALBUMIN 3.1 g/dl (3.4-5.0); BILIRUBIN,TOTAL 0.2 mg/dL (0.2-1); BLOOD UREA NITROGEN 13.9 mg/dL (7-18); CALCIUM 8.8 mg/dL (8.5-10.1); CREATININE 0.4 mg/dL (0.55-1.3); POTASSIUM 4.7 mmol/L (3.5-5.1); TOT PROT 6.8 g/dl (6.4-8.2)
--- NOTE | 2019-01-13 17:56 | PDOC ---
Attending Attestation - Resident Resident Name: Nicho Weeks - ED Attending Attestation I have performed the following: I have examined & evaluated the patient, The case was reviewed & discussed with the resident, I agree w/resident's findings & plan, Exceptions are as noted - HPI HPI: 01/13/19 17:52 23-year-old female status post delivery for hypertension and proteinuria concerns for eclampsia delivered 6 days ago has had persistent hypertension following her delivery. Was seen by Dr. Armin Sanchez today and sent to the ED for persistent hypertension. Patient denies any chest pain or shortness of breath denies any headache or blurry vision. Does have persistent bilateral foot swelling has been taking her BP medications today when she saw Dr. gonzalez he was given nifedipine in the office and then sent to the ED no other current complaints - Physicial Exam PE: 01/13/19 17:53 Awake alert no acute distress lungs are clear bilaterally heart is regular without murmurs rubs or gallops abdomen is soft nontender nondistended extremities are warm well perfused there is noted bilateral pedal edema which is nonpitting 2+ DP PT pulses bilaterally patient is awake alert oriented x3 moving all 4 extremities - Medical Decision Making 01/13/19 17:53 23-year-old female with recent delivery for pre eclampsia with persistent hypertension sent here today by her community outreach advocate for elevated BP. Persistent leg edema on arrival to the ED the patient's blood pressure is 174/ 111. Plan rule out persistent pre eclempsia . will send helpp labs with urinalysis will treat hypertension with labetalol will discuss with on-call OB in addition to Dr. whaley 01/13/19 19:15 pt with persistant hypertension despite iv medication labetalol 10 mg ivp, and labetalol 20 mg ivp, , and po labetalol. and will give hydralazine.d/w dr Davison, will admit. Heart Score/ECG Review #1 General ECG Interpretation: Sinus Rhythm, Normal Rate (75), Normal Intervals, No acute ischemic changes (no st t wave changes)
[2019-01-13] MEDS ORDERED: LABETALOL HCL 200 MG TABLET (FP) PO ONE (18:57)
[2019-01-13] MEDS ORDERED: hydrALAZINE HCL 20 MG/ML VIAL IVPUSH ONE (19:17)
[2019-01-13] MEDS ORDERED: hydrALAZINE HCL 20 MG/ML VIAL ONE (19:25)
[2019-01-13] MEDS ORDERED: MAGNESIUM SULF 50% (8.12 MEQ/2 ML-1 GM VIAL) IVPB ONE (19:25)
[2019-01-13] MEDS ORDERED: LABETALOL HCL 100 MG TABLET (FP) ONE ×2 (19:25→22:15)
[2019-01-13] MEDS ORDERED: IBUPROFEN 600 MG TABLET (FP) PO PRN (19:35)
[2019-01-13] MEDS ORDERED: ACETAMINOPHEN 325 MG TABLET (FP) PO PRN (19:35)
[2019-01-13] MEDS ORDERED: MAGNESIUM 4GM/H20 - 100 ML IVPB SCH (19:45)
[2019-01-13] MEDS ORDERED: MAGNESIUM SULFATE 20GM/500ML - 20 GM/500 ML INFUS.BAG IVPB SCH (19:45)
--- NOTE | 2019-01-13 20:28 | HP ---
Admitting History and Physical - Primary Care Physician PCP: Raimundo Puentes - Admission Chief Complaint: Patient evaluted for severe range BP History of Present Illness: Patient was evaluated by mud plant operator today and sent to ER for elevated BP. She failed to fill her prescription for nifidepine XL 60mg until today. She is on S/ P VD on PPD # 6 after induction of labor for pre-eclampsia. She denies ZAPIEN/ vision changes, SOB, RUQ pain, chest pain. She reports LE swelling. History Source: Patient Limitations to Obtaining History: No Limitations - Past Medical History WEIGHER AND GRADER: No: Alzheimer's, CVA, Dementia, Migraine, Multiple Sclerosis, Peripheral Neuropathy, Parkinson's, Seizure, Syncope, TIA, Vertigo, Other Cardiovascular: No: AFIB, Aneurysm, Aortic Insufficiency, Aortic Stenosis, CAD, CHF, Deep Vein Thrombosis, HTN, Hyperlipdemia, [place], Mitral Insufficiency, Mitral Stenosis, Murmur, Pulmonary Hypertension, Other Pulmonary: No: Asthma, Bronchitis, Cancer, COPD, O2 Dependent, Pneumonia, Previously Intubated, Pulmonary Embolus, Pulmonary Fibrosis, Sleep Apnea, Other Gastrointestinal: No: Ascites, Cancer, Constipation, Crohn's Disease, Diverticulitis, Diverticulosis, Esophageal Varices, Gastritis, GERD, GI Bleed, Hemorrhoids, Hiatal Hernia, Inflamatory Bowel Disease, Irritable Bowel Disease, Pancreatitis, Peptic Ulcer Disease, Ulcerative Colitis, Other Hepatobiliary: No: Cirrhosis, Cholelithiasis, Cholecystitis, Choledocholithiasis , Hepatitis A, Hepatitis B, Hepatitis C, Other Renal/: No: Renal Failure, Renal Inusuff, BPH, Cancer, Hematuria, Hemodialysis , Neurogenic Bladder, Renal Calculi, UTI, Other Reproductive: No: Ectopic , Endometriosis, Fibroids, PID, Polycystic Ovary Syndrome, Postmenopausal, Other Heme/Onc: No: Anemia, B12 Deficiency, Bleeding Disorder, Cancer, Current Chemotherapy, Current Radiation Therapy, Hemochromatosis, Hypercoaguable State, Myeloproliferative Synd, Sickle Cell Disease, Sickle Cell Trait, Thrombocytopenia, Other Infectious Disease: No: AIDS, C-Diff, Herpes Zoster, HIV, MRSA, STD's, Tuberculosis, VREF, Other Psych: No: Addictions, Anxiety, Bipolar, Depression, Panic, Psychosis, Schizophrenia, Other Musculoskeletal: No: Bursitis, Chronic low back pain, Hemiparesis, Hemiplegia, Osteoarthritis, Paraplegia, Other Rheumatology: No: Fibromyalgia, Gout, Lupus, Rheumatoid Arthritis, Sarcoidosis, Vasculitis, Other ENT: No: Allergic Rhinitis, Sinusitis, Other Endocrine: No: Israel's Disease, Miranda's Disease, Diabetes Insipidus, Diabetes Mellitus, Hyperparathyroidism, Hyperthyroidism, Hypothyroidism, Osteopenia, SIADH, Other Dermatology: No: Basal Cell, Cellulitis, Eczema, Melanoma, Psoriasis, Squamous Cell, Other - Past Surgical History Past Surgical History: No: None, AAA Repair, AICD, Amputation, Appendectomy, Arthrosocopy, AV Fistula/Graft, Bariatric Surgery, Breast Biopsy, Bypass, CABG, Carotid Endarterectomy, Cataract Removal, Cholecystectomy, Colectomy, Colonoscopy, Colostomy, Craniotomy, , Cystectomy, Hernia Repair, Hysterectomy, Ileal Conduit, Ileosotomy, Joint Replacement, Kidney Transplant, Laminectomy, Liver Transplant, Mastectomy, Nephrectomy, Oopherectomy, Orchiectomy, Permanent Pacemaker, Prostatectomy, Splenectomy, Stent, Thoracotomy , TURP, Tonsillectomy, Tubal Ligation, Upper Endoscopy, Valve Replacement, Vasectomy, Vein Stripping/Ligation - Advance Directives Advance Directives: No: Living Will, Health Care Proxy, DNR, Organ Donor, Tissue Donor, MOLST - Smoking History Smoking history: Never smoked Have you smoked in the past 12 months: No - Alcohol/Substance Use Hx Alcohol Use: No History of Substance Use: reports: None Home Medications - Allergies Allergies/Adverse Reactions: Allergies Allergy/AdvReac Type Severity Reaction Status Date / Time No Known Allergies Allergy Verified 01/13/19 16:11 - Home Medications Home Medications: Ambulatory Orders Vits96/Iron Fum/Folic [ Tablet] 1 tab PO DAILY 01/06/19 Ibuprofen 600 mg PO Q6H PRN #30 tablet 01/09/19 Labetalol HCl [Normodyne -] 300 mg PO BID #28 tablet 01/09/19 Family Medical History Other Family History: Father with HTN Review of Systems - Review of Systems Constitutional: reports: No Symptoms Eyes: reports: No Symptoms HENT: reports: No Symptoms Neck: reports: No Symptoms Cardiovascular: reports: No Symptoms Respiratory: reports: No Symptoms Genitourinary: reports: No Symptoms Breasts: reports: No Symptoms Reported Musculoskeletal: reports: Other (LE edema) Integumentary: reports: No Symptoms Neurological: reports: No Symptoms Endocrine: reports: No Symptoms Hematology/Lymphatic: reports: No Symptoms Psychiatric: reports: No Symptoms Physical Examination Vital Signs: Vital Signs Temperature 98.5 F 01/13/19 19:46 Pulse Rate 81 01/13/19 19:46 Respiratory Rate 19 01/13/19 19:46 Blood Pressure 148/102 H 01/13/19 19:46 O2 Sat by Pulse Oximetry (%) 100 01/13/19 19:46 Constitutional: Yes: No Distress, Calm Eyes: Yes: Other (periorbital edema) HENT: Yes: Other (fascial edema) Neck: Yes: Supple Cardiovascular: Yes: Regular Rate and Rhythm Respiratory: Yes: Regular Gastrointestinal: Yes: Soft ...Rectal Exam: Yes: Deferred Renal/: Yes: Other (deferred) Breast(s): Yes: Other (deferred) Musculoskeletal: Yes: WNL Extremities: Yes: Other (2+DTR, no clonus) Edema: Yes Edema: LLE: 2+, RLE: 2+ Integumentary: Yes: WNL Wound/Incision: Yes: Well Approximated Neurological: Yes: Alert, Oriented ...Motor Strength: WNL Psychiatric: Yes: Alert, Oriented Labs: CBC, BMP 01/13/19 16:47 01/13/19 16:47 Assessment/Plan 23 y/o on PPD # 6 S/P VD following induction of labor due to Pre-eclampsia admitted with severe range BP. No evidence of WEIGHER AND GRADER irritability and stable labs. Diagnosis of PEC with severe features discussed with the patient. Extensive conversation carried out with Nurse supervisor properties (Mrs Regan) due to logistical issues with bed availability. ICU reported as only option per nursing, even though it is not required -Mag prophylaxis for 24hrs -Mag level q4hrs after mag load and the q6hrs until mag is discontinued. -Close BP monitoring as ordered -PO Nifedipine increased to 90mg ER q day to start tomorrow morning -Labetalol 400mg PO BID -AM PEC labs
--- NOTE | 2019-01-13 21:28 | CONSULT ---
Consultation: REQUESTING PROVIDER: Dr. Raimundo Puentes CONSULT REQUEST: We have been asked to medically evaluate this patient for preeclampsia management. HISTORY OF PRESENT ILLNESS: This is a 23 y/o GTPAL- 2,1,0,1,1 female with no PMH presents s/p vaginal delivery PPD #6 with hypertension (>160's/110's) and 3 + proteinuria. Pt was evaluated by nephrology yesterday and was sent to the ER for HTN evaluation. She recently failed to machine pecan picker her Nifedipine XL 60mg tablets until today. She denies having a hx of HTN either gestationally or not, ZAPIEN/vision changes, hx of seizures, sob, cp, RUQ pain, nausea, vomiting, abd pain , fevers, or chills. She admits to periorbital edema and leg swelling, along with having a warm sensation while breathing but denies any dysphagia. The reason for consulting ICU is for preeclampsia management and prevention from transitioning to eclampsia. Pt endorses to have received the flu shot this season. ED events: pt received labetalol 10mg IVP, Labetalol 20IVP, PO labetalol and hydralizine ua- 3+ protein, BP- 160's/110's No medical Hx No allergies Surgical Hx- lipo suction Fam Hx- HTN on dad's side No T, A, or D. REVIEW OF SYSTEMS: negative except seen above PHYSICAL EXAMINATION Vital Signs - 24 hr 01/13/19 01/13/19 01/13/19 16:08 16:42 17:45 Temperature 98.4 F 98.2 F Pulse Rate 87 Pulse Rate [ 84 86 Left Apical] Respiratory 19 16 18 Rate Blood Pressure 175/117 H Blood Pressure 171/124 H 162/103 H [Left Arm] O2 Sat by Pulse 99 98 96 Oximetry (%) 01/13/19 01/13/19 01/13/19 18:26 19:46 20:52 Temperature 98.2 F 98.5 F 98.0 F Pulse Rate Pulse Rate [ 84 81 85 Left Apical] Respiratory 16 19 16 Rate Blood Pressure Blood Pressure 174/108 H 148/102 H 137/97 [Left Arm] O2 Sat by Pulse 98 100 100 Oximetry (%) 01/13/19 20:57 Temperature Pulse Rate Pulse Rate [ Left Apical] Respiratory Rate Blood Pressure Blood Pressure [Left Arm] O2 Sat by Pulse 100 Oximetry (%) GENERAL: Awake, alert, and fully oriented, in no acute distress. EYES: periorbital edema LUNGS: Breath sounds equal, clear to auscultation bilaterally. No wheezes, and no crackles. HEART: Regular rate and rhythm, normal S1 and S2 without murmur, rub or gallop. ABDOMEN: Soft, nontender, not distended, no guarding, no rebound. LOWER EXTREMITIES: trace peripheral edema. SKIN: Warm, dry, no rashes or lesions noted. Laboratory Results - last 24 hr 01/13/19 01/13/19 01/13/19 16:47 16:47 16:47 WBC 8.1 RBC 4.48 Hgb 12.4 Hct 38.1 D MCV 85.1 MCH 27.6 MCHC 32.4 RDW 14.8 Plt Count 327 D MPV 8.1 D Absolute Neuts (auto) 5.3 Neutrophils % 65.6 Lymphocytes % 22.0 D Monocytes % 6.8 Eosinophils % 4.9 H D Basophils % 0.7 D Nucleated RBC % 0 Sodium 140 Potassium 4.7 Chloride 108 H Carbon Dioxide 26 Anion Gap 7 L BUN 13.9 Creatinine 0.4 L Est GFR (CKD-EPI)AfAm 170.15 Est GFR (CKD-EPI)NonAf 146.81 Random Glucose 87 Calcium 8.8 Total Bilirubin 0.2 AST 25 ALT 20 Alkaline Phosphatase 156 H LD Total 311 H Total Protein 6.8 Albumin 3.1 L Urine Color Yellow Urine Appearance Clear Urine pH 6.0 Ur Specific [place] 1.010 Urine Protein 3+ H Urine Glucose (UA) Negative Urine Ketones Negative Urine Blood 3+ H Urine Nitrite Negative Urine Bilirubin Negative Urine Urobilinogen 0.2 Ur Leukocyte Esterase Trace Urine WBC (Auto) 9 Urine RBC (Auto) 61 Urine Casts (Auto) 1 U Epithel Cells (Auto) 2.4 Urine Bacteria (Auto) 1.0 U Random Total Protein Urine Creatinine Protein/Creatinin Ratio 01/13/19 19:48 WBC RBC Hgb Hct MCV MCH MCHC RDW Plt Count MPV Absolute Neuts (auto) Neutrophils % Lymphocytes % Monocytes % Eosinophils % Basophils % Nucleated RBC % Sodium Potassium Chloride Carbon Dioxide Anion Gap BUN Creatinine Est GFR (CKD-EPI)AfAm Est GFR (CKD-EPI)NonAf Random Glucose Calcium Total Bilirubin AST ALT Alkaline Phosphatase LD Total Total Protein Albumin Urine Color Urine Appearance Urine pH Ur Specific [place] Urine Protein Urine Glucose (UA) Urine Ketones Urine Blood Urine Nitrite Urine Bilirubin Urine Urobilinogen Ur Leukocyte Esterase Urine WBC (Auto) Urine RBC (Auto) Urine Casts (Auto) U Epithel Cells (Auto) Urine Bacteria (Auto) U Random Total Protein 143.9 H Urine Creatinine 35.0 Protein/Creatinin Ratio 4.1 Active Medications Generic Name Dose Route Start Last Admin Trade Name Freq PRN Reason Stop Dose Admin Acetaminophen 650 mg 01/13/19 19:35 Tylenol - PO Q3H PRN PAIN Magnesium Sulfate 100 mls @ 200 mls/hr 01/13/19 19:45 Magnesium 4gm/H20 - IVPB ASDIR ESME Magnesium Sulfate 500 mls @ 50 mls/hr 01/13/19 19:45 Magnesium Sulfate 20gm/500ml - IVPB ASDIR ESME Ibuprofen 600 mg 01/13/19 19:35 Motrin - PO Q4H PRN PAIN Labetalol HCl 400 mg 01/13/19 22:00 Normodyne - PO BID [facility] Nifedipine 90 mg 01/14/19 07:00 Procardia Xl - PO DAILY@0700 [facility] Multivit/Folic Acid/Iron 1 tab 01/14/19 10:00 Vitamins (Sjr) - PO DAILY [facility] ASSESSMENT/PLAN: This is a 23 y/o GTPAL- 2,1,0,1,1 female with no PMH presents s/p vaginal delivery PPD #6 with hypertension and 3+ proteinuria. The reason for consulting ICU is for preeclampsia management and prevention from transitioning to eclampsia. Pt endorses to have received the flu shot this season. Neuro-> prevention of eclampsia - check for signs of Mg toxicity q1-2hrs (absent patellar reflex, RR <12) - received magnesium loading dose (4g/30min) and followed by 2g/hr for 12-24 hrs. - monitor Mg levels 4 hrs after loading dose given - then monitor the mag levels every 6 hrs. - monitor BP q 4H's. - In ED- pt received labetalol 10mg IVP, Labetalol 20IVP, PO labetalol and hydralizine - c/w heparin 5K TID - c/w nifedipine 90 mg starting tm - c/w labetalol 400 BID - motrin 600q4h. Dispo: We will continue to follow the patient. Thank you for this consultative opportunity. Visit type - Emergency Visit Emergency Visit: Yes ED Registration Date: 01/13/19 Care time: The patient presented to the Emergency Department on the above date and was hospitalized for further evaluation of their emergent condition. - New Patient This patient is new to me today: Yes Date on this admission: 01/15/19 - Critical Care Critical Care patient: Yes Total Critical Care Time (in minutes): 35 Critical Care Statement: The care of this patient involved high complexity decision making to prevent further life threatening deterioration of the patient 's condition and/or to evaluate & treat vital organ system(s) failure or risk of failure.
--- NOTE | 2019-01-13 21:36 | CONSULT ---
Consult - text type - Consultation Consultation Note: I spoke to ER and ICU provider over the phone in order to expedite patient treatment. BP under control, but magnesium prophylaxis not yet started. Magnesium sulfate IV administration policy reviewed due to delay in patient care.
[2019-01-13] MEDS ORDERED: LABETALOL HCL 200 MG TABLET (FP) PO SCH (22:00)
--- NOTE | 2019-01-14 00:35 | CONSULT ---
Consult - text type - Consultation Consultation Note: ICU and ER called, patient is still awaiting transfer to ICU and magnesium administration. (This is a late entry note corresponding to 01/13/19 at 23:12)
[2019-01-14] MEDS: NIFEdipine E.R. 90 MG TABLET (FP) PO SCH (06:42)
[2019-01-14] MEDS: HEPARIN NA (PORCINE) 5,000 UNITS/ML 1ML VIAL SQ SCH ×3 (06:42→22:01)
[2019-01-14 07:29] LABS: BASO % 0.5 % (0-2.0); EOS % 4.6 % (0-4.5); HEMATOCRIT 34.6 % (32.4-45.2); HEMOGLOBIN 11.6 GM/dL (10.7-15.3); LYMPH % 26.2 % (8-40); MCH 28.1 pg (25.7-33.7); MCHC 33.4 g/dl (32.0-36.0); MEAN CELL VOLUME 84.1 fl (80-96); MEAN PLT VOLUME 8.6 fl (7.5-11.1); MONO % 9.3 % (3.8-10.2); NEUT % 59.4 % (42.8-82.8); PLATELET COUNT 309 K/MM3 (134-434); RBC 4.11 M/mm3 (3.60-5.2); RDW 14.7 % (11.6-15.6); WHITE BLOOD COUNT 7.8 K/mm3 (4.0-10.0)
[2019-01-14 07:47] LABS: ALBUMIN 2.9 g/dl (3.4-5.0); BILIRUBIN,TOTAL 0.5 mg/dL (0.2-1); BLOOD UREA NITROGEN 10.8 mg/dL (7-18); CALCIUM 8.5 mg/dL (8.5-10.1); CREATININE 0.4 mg/dL (0.55-1.3); MAGNESIUM 5.4 mg/dL (1.8-2.4); POTASSIUM 4.2 mmol/L (3.5-5.1); TOT PROT 6.3 g/dl (6.4-8.2); URIC ACID 6.3 mg/dL (2.6-7.2)
--- NOTE | 2019-01-14 08:41 | PN ---
Post Progress Note - Subjective Subjective: Patient reports feeling well, no H/A/vision changes, no CP. no SOB, no RUQ pain , no NV, LE swelling improved Post Day: 7 Type of Delivery: Vital Signs: Vital Signs Temperature 98.2 F 01/14/19 07:00 Pulse Rate 80 01/14/19 07:00 Respiratory Rate 15 01/14/19 07:00 Blood Pressure 119/82 01/14/19 07:00 O2 Sat by Pulse Oximetry (%) 100 01/14/19 07:54 Breast Exam: Yes: Other (deferred) Uterus: Yes: Fundus Firm Abdomen/GI: Yes: Abdomen soft Lochia, amount: Small Extremities: Yes: Calves non-tender Perineum: Yes: Intact - Labs Labs: CBC WBC 8.1 K/mm3 (4.0-10.0) 01/13/19 16:47 RBC 4.48 M/mm3 (3.60-5.2) 01/13/19 16:47 Hgb 12.4 GM/dL (10.7-15.3) 01/13/19 16:47 Hct 38.1 % (32.4-45.2) D 01/13/19 16:47 MCV 85.1 fl (80-96) 01/13/19 16:47 MCH 27.6 pg (25.7-33.7) 01/13/19 16:47 MCHC 32.4 g/dl (32.0-36.0) 01/13/19 16:47 RDW 14.8 % (11.6-15.6) 01/13/19 16:47 Plt Count 327 K/MM3 (134-434) D 01/13/19 16:47 MPV 8.1 fl (7.5-11.1) D 01/13/19 16:47 Absolute Neuts (auto) 5.3 K/mm3 (1.5-8.0) 01/13/19 16:47 Neutrophils % 65.6 % (42.8-82.8) 01/13/19 16:47 Lymphocytes % 22.0 % (8-40) D 01/13/19 16:47 Monocytes % 6.8 % (3.8-10.2) 01/13/19 16:47 Eosinophils % 4.9 % (0-4.5) H D 01/13/19 16:47 Basophils % 0.7 % (0-2.0) D 01/13/19 16:47 Nucleated RBC % 0 % (0-0) 01/13/19 16:47 Other Findings, Remarks: Abd: soft, n/d, n/t, no RUQ tenderness, fundus is firm Ext: 2+DTR, no clonus, 1+ edema Assessment/Plan 23 y/o on PPD # 7 S/P VD following induction for PEC. Presenting with BPs in severe range requiring IV antihypertensive. Patient was dmitted for magnesium seizure prophylaxis for PEC with severe features. BPs in normal range on PO antihypertensive. No evidence of GAMING MANAGER irritability and mag toxicity, normal labs , excellent UOP. -Continue mag for a total of 24 hours with q6hrs mag levels -Monitor BP and strict I&Os -PO nifedipine and labetalol as ordered -Consider discharge after mag completion and after >24hrs without severe BP reading
--- NOTE | 2019-01-14 08:52 | PN ---
Progress Note (short form) - Note Progress Note: Patient signed out to Dr Paul
--- NOTE | 2019-01-14 09:12 | PN ---
Progress Note (short form) - Note Progress Note: Labetalol decreased to 200mg BID
[2019-01-14] MEDS ORDERED: PT OWN MED DRAWER 7, Y5N ONE ×2 (09:35→14:17)
[2019-01-14] MEDS: MUPIROCIN 2% TOPICAL OINTMENT FOR DECOLONIZATION NS SCH ×2 (09:48→22:00)
[2019-01-14] MEDS: PRENATAL VITAMINS W/ FOLIC ACID TABLET (FP) PO SCH (09:52)
[2019-01-14] MEDS ORDERED: LABETALOL HCL 200 MG TABLET (FP) PO SCH (10:00)
--- NOTE | 2019-01-14 10:50 | PN ---
Physical Exam: SUBJECTIVE: Patient seen and examined at bedside in the ICU. Patient is awake, alert, and oriented. Denies headache, change in vision, dizziness. Denies chest pain or shortness of breath. Continues to be on IV mag. GENERAL: The patient is awake, alert, and fully oriented, in no acute distress. HEAD: Normal with no signs of trauma. EYES: PERRL, extraocular movements intact, sclera anicteric, conjunctiva clear. No ptosis. ENT: Ears normal, nares patent, oropharynx clear without exudates, moist mucous membranes. NECK: Trachea midline, full range of motion, supple. LUNGS: Breath sounds equal, clear to auscultation bilaterally, no wheezes, no crackles, no accessory muscle use. HEART: Regular rate and rhythm, S1, S2 without murmur, rub or gallop. ABDOMEN: Soft, nontender, nondistended, normoactive bowel sounds, no guarding, no rebound, no hepatosplenomegaly, no masses. EXTREMITIES: 2+ pulses, warm, well-perfused, (+) edema. NEUROLOGICAL: Non-focal PSYCH: Normal mood, normal affect. SKIN: Warm, dry, normal turgor, no rashes or lesions noted OBJECTIVE: Vital Signs Period Temp Pulse Resp BP Sys/Hunter Pulse Ox Last 24 Hr 98 F-98.6 F 74-110 15-23 107-175/66-124 96-100 GENERAL: The patient is awake, alert, and fully oriented, in no acute distress. HEAD: Normal with no signs of trauma. EYES: PERRL, extraocular movements intact, sclera anicteric, conjunctiva clear. No ptosis. ENT: Ears normal, nares patent, oropharynx clear without exudates, moist mucous membranes. NECK: Trachea midline, full range of motion, supple. LUNGS: Breath sounds equal, clear to auscultation bilaterally, no wheezes, no crackles, no accessory muscle use. HEART: Regular rate and rhythm, S1, S2 without murmur, rub or gallop. ABDOMEN: Soft, nontender, nondistended, normoactive bowel sounds, no guarding, no rebound, no hepatosplenomegaly, no masses. EXTREMITIES: 2+ pulses, warm, well-perfused, mild 1+ pitting edema bilaterally. NEUROLOGICAL: Cranial nerves II through XII grossly intact. Normal speech, gait not observed. PSYCH: Normal mood, normal affect. SKIN: Warm, dry, normal turgor, no rashes or lesions noted Laboratory Results - last 24 hr 01/13/19 01/13/19 01/13/19 16:47 16:47 16:47 WBC 8.1 RBC 4.48 Hgb 12.4 Hct 38.1 D MCV 85.1 MCH 27.6 MCHC 32.4 RDW 14.8 Plt Count 327 D MPV 8.1 D Absolute Neuts (auto) 5.3 Neutrophils % 65.6 Lymphocytes % 22.0 D Monocytes % 6.8 Eosinophils % 4.9 H D Basophils % 0.7 D Nucleated RBC % 0 Sodium 140 Potassium 4.7 Chloride 108 H Carbon Dioxide 26 Anion Gap 7 L BUN 13.9 Creatinine 0.4 L Est GFR (CKD-EPI)AfAm 170.15 Est GFR (CKD-EPI)NonAf 146.81 Random Glucose 87 Lactic Acid Uric Acid Calcium 8.8 Magnesium Total Bilirubin 0.2 AST 25 ALT 20 Alkaline Phosphatase 156 H LD Total 311 H Total Protein 6.8 Albumin 3.1 L Urine Color Yellow Urine Appearance Clear Urine pH 6.0 Ur Specific [place] 1.010 Urine Protein 3+ H Urine Glucose (UA) Negative Urine Ketones Negative Urine Blood 3+ H Urine Nitrite Negative Urine Bilirubin Negative Urine Urobilinogen 0.2 Ur Leukocyte Esterase Trace Urine WBC (Auto) 9 Urine RBC (Auto) 61 Urine Casts (Auto) 1 U Epithel Cells (Auto) 2.4 Urine Bacteria (Auto) 1.0 U Random Total Protein Urine Creatinine Protein/Creatinin Ratio 01/13/19 01/14/19 01/14/19 19:48 01:45 05:50 WBC 7.8 RBC 4.11 Hgb 11.6 Hct 34.6 MCV 84.1 MCH 28.1 MCHC 33.4 RDW 14.7 Plt Count 309 MPV 8.6 Absolute Neuts (auto) 4.7 Neutrophils % 59.4 Lymphocytes % 26.2 Monocytes % 9.3 Eosinophils % 4.6 H Basophils % 0.5 Nucleated RBC % 0 Sodium Potassium Chloride Carbon Dioxide Anion Gap BUN Creatinine Est GFR (CKD-EPI)AfAm Est GFR (CKD-EPI)NonAf Random Glucose Lactic Acid Uric Acid Calcium Magnesium 3.9 H Total Bilirubin AST ALT Alkaline Phosphatase LD Total Total Protein Albumin Urine Color Urine Appearance Urine pH Ur Specific [place] Urine Protein Urine Glucose (UA) Urine Ketones Urine Blood Urine Nitrite Urine Bilirubin Urine Urobilinogen Ur Leukocyte Esterase Urine WBC (Auto) Urine RBC (Auto) Urine Casts (Auto) U Epithel Cells (Auto) Urine Bacteria (Auto) U Random Total Protein 143.9 H Urine Creatinine 35.0 Protein/Creatinin Ratio 4.1 01/14/19 01/14/19 05:50 05:50 WBC RBC Hgb Hct MCV MCH MCHC RDW Plt Count MPV Absolute Neuts (auto) Neutrophils % Lymphocytes % Monocytes % Eosinophils % Basophils % Nucleated RBC % Sodium 139 Potassium 4.2 Chloride 106 Carbon Dioxide 24 Anion Gap 9 BUN 10.8 Creatinine 0.4 L Est GFR (CKD-EPI)AfAm 170.15 Est GFR (CKD-EPI)NonAf 146.81 Random Glucose 79 Lactic Acid 0.8 Uric Acid 6.3 Calcium 8.5 Magnesium 5.4 H Total Bilirubin 0.5 AST 13 L ALT 17 Alkaline Phosphatase 143 H LD Total 228 Total Protein 6.3 L Albumin 2.9 L Urine Color Urine Appearance Urine pH Ur Specific [place] Urine Protein Urine Glucose (UA) Urine Ketones Urine Blood Urine Nitrite Urine Bilirubin Urine Urobilinogen Ur Leukocyte Esterase Urine WBC (Auto) Urine RBC (Auto) Urine Casts (Auto) U Epithel Cells (Auto) Urine Bacteria (Auto) U Random Total Protein Urine Creatinine Protein/Creatinin Ratio Active Medications Generic Name Dose Route Start Last Admin Trade Name Freq PRN Reason Stop Dose Admin Acetaminophen 650 mg 01/13/19 19:35 Tylenol - PO Q3H PRN PAIN Chlorhexidine Gluconate 1 applic 01/14/19 22:00 Hibiclens For Decolonization - TP HS [facility] Heparin Sodium (Porcine) 5,000 unit 01/14/19 06:00 01/14/19 06:42 Heparin - SQ 5,000 unit TID [facility] Administration Ibuprofen 600 mg 01/13/19 19:35 Motrin - PO Q4H PRN PAIN Labetalol HCl 200 mg 01/14/19 10:00 01/14/19 09:47 Normodyne - PO 200 mg BID [facility] Administration Mupirocin 1 applic 01/14/19 10:00 01/14/19 09:48 Bactroban Ointment (For Decolonization) - NS 01/19/19 09:59 Not Given BID [facility] Nifedipine 90 mg 01/14/19 07:00 01/14/19 06:42 Procardia Xl - PO 90 mg DAILY@0700 [facility] Administration Multivit/Folic Acid/Iron 1 tab 01/14/19 10:00 01/14/19 09:52 Vitamins (Sjr) - PO 1 tab DAILY [facility] Administration ASSESSMENT/PLAN: This is a 23 y/o GTPAL- 2,1,0,1,1 female with no PMH presents s/p vaginal delivery PPD #7 with hypertension and 3+ proteinuria. The reason for consulting ICU is for preeclampsia management and prevention from transitioning to eclampsia. Pt endorses to have received the flu shot this season. Neuro-> prevention of eclampsia - Mg drip 25 cc/hr - check for signs of Mg toxicity q1-2hrs (absent patellar reflex, RR <12) - received magnesium loading dose (4g/30min) and followed by 2g/hr for 12-24 hrs. - monitor Mg levels 4 hrs after loading dose given, then monitor the mag levels every 6 hrs. - monitor BP q 4H's. - In ED- pt received labetalol 10mg IVP, Labetalol 20IVP, PO labetalol and hydralizine - c/w nifedipine 90 mg starting - c/w labetalol 400 BID - motrin 600q4h. - per OB, finish Mg drip, and plan for d/c 24 hours after last severe BP reading Resp -O2 supplementation PRN F/E/N -PO as tolerated -trend lytes, replete PRN DVT ppx: heparin 5000 TID Dispo: continue ICU care Bassem Richardson MD PGY-1, Critical Care/ICU [phone] Visit type - Emergency Visit Emergency Visit: Yes ED Registration Date: 01/13/19 Care time: The patient presented to the Emergency Department on the above date and was hospitalized for further evaluation of their emergent condition. - New Patient This patient is new to me today: No - Critical Care Critical Care patient: Yes Total Critical Care Time (in minutes): 35 Critical Care Statement: The care of this patient involved high complexity decision making to prevent further life threatening deterioration of the patient 's condition and/or to evaluate & treat vital organ system(s) failure or risk of failure. ATTENDING PHYSICIAN STATEMENT I saw and evaluated the patient. I reviewed the resident's note and discussed the case with the resident. I agree with the resident's findings and plan as documented. SUBJECTIVE: OBJECTIVE: ASSESSMENT AND PLAN:
--- NOTE | 2019-01-14 11:21 | PN ---
Teaching Attending Note Name of Resident: Bassem Richardson ATTENDING PHYSICIAN STATEMENT I saw and evaluated the patient. I reviewed the resident's note and discussed the case with the resident. I agree with the resident's findings and plan as documented. SUBJECTIVE: Patient seen and examined in the ICU. Awake and alert. No ZAPIEN, BOV, dizziness, etc. No CP or SOB. On IV Magnesium drip. Intake & Output 01/11/19 01/12/19 01/13/19 01/14/19 23:59 23:59 23:59 23:59 Intake Total 250 Output Total 1000 Balance -750 Weight 151 lb 158 lb 4.8 oz Last Vital Signs Temp Pulse Resp BP Pulse Ox 98.1 F 84 19 102/65 100 01/14/19 10:00 01/14/19 11:00 01/14/19 11:00 01/14/19 11:00 01/14/19 07:54 Active Medications Acetaminophen (Tylenol -) 650 mg PO Q3H PRN PRN Reason: PAIN Chlorhexidine Gluconate (Hibiclens For Decolonization -) 1 applic TP HS [facility] Heparin Sodium (Porcine) (Heparin -) 5,000 unit SQ TID [facility] Last Admin: 01/14/19 06:42 Dose: 5,000 unit Ibuprofen (Motrin -) 600 mg PO Q4H PRN PRN Reason: PAIN Labetalol HCl (Normodyne -) 200 mg PO BID [facility] Last Admin: 01/14/19 09:47 Dose: 200 mg Mupirocin (Bactroban Ointment (For Decolonization) -) 1 applic NS BID [facility] Stop: 01/19/19 09:59 Last Admin: 01/14/19 09:48 Dose: Not Given Nifedipine (Procardia Xl -) 90 mg PO DAILY@0700 [facility] Last Admin: 01/14/19 06:42 Dose: 90 mg Multivit/Folic Acid/Iron ( Vitamins (Sjr) -) 1 tab PO DAILY [facility] Last Admin: 01/14/19 09:52 Dose: 1 tab GENERAL: The patient is awake, alert, and fully oriented, in no acute distress. HEAD: Normal with no signs of trauma. EYES: PERRL, extraocular movements intact, sclera anicteric, conjunctiva clear. No ptosis. ENT: Ears normal, nares patent, oropharynx clear without exudates, moist mucous membranes. NECK: Trachea midline, full range of motion, supple. LUNGS: Breath sounds equal, clear to auscultation bilaterally, no wheezes, no crackles, no accessory muscle use. HEART: Regular rate and rhythm, S1, S2 without murmur, rub or gallop. ABDOMEN: Soft, nontender, nondistended, normoactive bowel sounds, no guarding, no rebound, no hepatosplenomegaly, no masses. EXTREMITIES: 2+ pulses, warm, well-perfused, (+) edema. NEUROLOGICAL: Non-focal PSYCH: Normal mood, normal affect. SKIN: Warm, dry, normal turgor, no rashes or lesions noted Laboratory Results - last 24 hr 01/13/19 01/13/19 01/13/19 16:47 16:47 16:47 WBC 8.1 RBC 4.48 Hgb 12.4 Hct 38.1 D MCV 85.1 MCH 27.6 MCHC 32.4 RDW 14.8 Plt Count 327 D MPV 8.1 D Absolute Neuts (auto) 5.3 Neutrophils % 65.6 Lymphocytes % 22.0 D Monocytes % 6.8 Eosinophils % 4.9 H D Basophils % 0.7 D Nucleated RBC % 0 Sodium 140 Potassium 4.7 Chloride 108 H Carbon Dioxide 26 Anion Gap 7 L BUN 13.9 Creatinine 0.4 L Est GFR (CKD-EPI)AfAm 170.15 Est GFR (CKD-EPI)NonAf 146.81 Random Glucose 87 Lactic Acid Uric Acid Calcium 8.8 Magnesium Total Bilirubin 0.2 AST 25 ALT 20 Alkaline Phosphatase 156 H LD Total 311 H Total Protein 6.8 Albumin 3.1 L Urine Color Yellow Urine Appearance Clear Urine pH 6.0 Ur Specific [place] 1.010 Urine Protein 3+ H Urine Glucose (UA) Negative Urine Ketones Negative Urine Blood 3+ H Urine Nitrite Negative Urine Bilirubin Negative Urine Urobilinogen 0.2 Ur Leukocyte Esterase Trace Urine WBC (Auto) 9 Urine RBC (Auto) 61 Urine Casts (Auto) 1 U Epithel Cells (Auto) 2.4 Urine Bacteria (Auto) 1.0 U Random Total Protein Urine Creatinine Protein/Creatinin Ratio 01/13/19 01/14/19 01/14/19 19:48 01:45 05:50 WBC 7.8 RBC 4.11 Hgb 11.6 Hct 34.6 MCV 84.1 MCH 28.1 MCHC 33.4 RDW 14.7 Plt Count 309 MPV 8.6 Absolute Neuts (auto) 4.7 Neutrophils % 59.4 Lymphocytes % 26.2 Monocytes % 9.3 Eosinophils % 4.6 H Basophils % 0.5 Nucleated RBC % 0 Sodium Potassium Chloride Carbon Dioxide Anion Gap BUN Creatinine Est GFR (CKD-EPI)AfAm Est GFR (CKD-EPI)NonAf Random Glucose Lactic Acid Uric Acid Calcium Magnesium 3.9 H Total Bilirubin AST ALT Alkaline Phosphatase LD Total Total Protein Albumin Urine Color Urine Appearance Urine pH Ur Specific [place] Urine Protein Urine Glucose (UA) Urine Ketones Urine Blood Urine Nitrite Urine Bilirubin Urine Urobilinogen Ur Leukocyte Esterase Urine WBC (Auto) Urine RBC (Auto) Urine Casts (Auto) U Epithel Cells (Auto) Urine Bacteria (Auto) U Random Total Protein 143.9 H Urine Creatinine 35.0 Protein/Creatinin Ratio 4.1 01/14/19 01/14/19 05:50 05:50 WBC RBC Hgb Hct MCV MCH MCHC RDW Plt Count MPV Absolute Neuts (auto) Neutrophils % Lymphocytes % Monocytes % Eosinophils % Basophils % Nucleated RBC % Sodium 139 Potassium 4.2 Chloride 106 Carbon Dioxide 24 Anion Gap 9 BUN 10.8 Creatinine 0.4 L Est GFR (CKD-EPI)AfAm 170.15 Est GFR (CKD-EPI)NonAf 146.81 Random Glucose 79 Lactic Acid 0.8 Uric Acid 6.3 Calcium 8.5 Magnesium 5.4 H Total Bilirubin 0.5 AST 13 L ALT 17 Alkaline Phosphatase 143 H LD Total 228 Total Protein 6.3 L Albumin 2.9 L Urine Color Urine Appearance Urine pH Ur Specific [place] Urine Protein Urine Glucose (UA) Urine Ketones Urine Blood Urine Nitrite Urine Bilirubin Urine Urobilinogen Ur Leukocyte Esterase Urine WBC (Auto) Urine RBC (Auto) Urine Casts (Auto) U Epithel Cells (Auto) Urine Bacteria (Auto) U Random Total Protein Urine Creatinine Protein/Creatinin Ratio ASSESSMENT/PLAN: Hypertensive Urgency on Magnesium Drip S/P VD on PPD # 7 after induction of labor for pre-eclampsia. Magnesium drip VTE prophylaxis O2 as needed PO as tolerated PO BP Meds Dr Babb
--- NOTE | 2019-01-14 12:08 | EKG ---
Test Reason : Blood Pressure : / mmHG Vent. Rate : 075 BPM Atrial Rate : 075 BPM P-R Int : 144 ms QRS Dur : 096 ms QT Int : 390 ms P-R-T Axes : 022 012 037 degrees QTc Int : 435 ms NORMAL SINUS RHYTHM POSSIBLE LEFT ATRIAL ENLARGEMENT CANNOT RULE OUT ANTERIOR INFARCT , AGE UNDETERMINED ABNORMAL ECG NO PREVIOUS ECGS AVAILABLE Confirmed by Miguel A Lagos ([id number]) on 01/14/2019 12:08:07 PM Referred By: Confirmed By:Miguel A Lagos
--- NOTE | 2019-01-14 12:43 | PN ---
Progress Note (short form) - Note Progress Note: Renal follow up for hypertension This is a 23 year old woman s/p recent vagina dilivery complicated by preeclampsia and discharged home on oral antihypertensive medications on Jan 11. She was seen in my office yesterday for hypertension follow up, during which her BP was 175/130 w/o any acute symptoms. She was prescribed Nifedpine ER 60mg daily on discharge but did not belt picker medications until Sunday and did not take any since hospital discharge. Was given the oral nifedipine in our office but did not improve and was sent to the ER. Currently pt is in the ICU, awake and alert. BP is now improved. S/p Magnesium gtt. Vital Signs Temperature 98.1 F 01/14/19 10:00 Pulse Rate 88 01/14/19 12:00 Respiratory Rate 01/14/19 12:00 Blood Pressure 105/65 01/14/19 12:00 O2 Sat by Pulse Oximetry (%) 100 01/14/19 07:54 Intake & Output 01/11/19 01/12/19 01/13/19 01/14/19 23:59 23:59 23:59 23:59 Intake Total 250 Output Total 1000 Balance -750 Weight 68.492 kg 71.804 kg NAD awake and alert neck supple RRR, no murmur CTA soft NT/ND no LE edema CBC, BMP 01/14/19 05:50 01/14/19 05:50 Current Medications Acetaminophen (Tylenol -) 650 mg PO Q3H PRN PRN Reason: PAIN Chlorhexidine Gluconate (Hibiclens For Decolonization -) 1 applic TP HS [facility] Heparin Sodium (Porcine) (Heparin -) 5,000 unit SQ TID [facility] Last Admin: 01/14/19 06:42 Dose: 5,000 unit Ibuprofen (Motrin -) 600 mg PO Q4H PRN PRN Reason: PAIN Labetalol HCl (Normodyne -) 200 mg PO BID [facility] Last Admin: 01/14/19 09:47 Dose: 200 mg Mupirocin (Bactroban Ointment (For Decolonization) -) 1 applic NS BID [facility] Stop: 01/19/19 09:59 Last Admin: 01/14/19 09:48 Dose: Not Given Nifedipine (Procardia Xl -) 90 mg PO DAILY@0700 [facility] Last Admin: 01/14/19 06:42 Dose: 90 mg Multivit/Folic Acid/Iron ( Vitamins (Sjr) -) 1 tab PO DAILY [facility] Last Admin: 01/14/19 09:52 Dose: 1 tab 23 year old woman with preeclampsia who presented with uncontrolled hypertension. #Uncontrolled hypertension #Preeclampsia BP is now controlled on Nifedpine ER 90mg and Labetalol. BP is slightly better then goal. Can reduce labetalol to 100mg BID with hold parameters for hypotension Low salt diet Magnesium gtt as per OB Daniel Escamilla DO
[2019-01-14] MEDS ORDERED: MAGNESIUM SULFATE 20GM/500ML - 20 GM/500 ML INFUS.BAG IVPB SCH (13:00)
[2019-01-14] MEDS ORDERED: CHLORHEXIDINE GLUCONATE 4% CLEANSER FOR DECOLONIZATION TP SCH (22:00)
[2019-01-14] MEDS: LABETALOL HCL 100 MG TABLET (FP) PO SCH (22:01)
[2019-01-15] MEDS: NIFEdipine E.R. 90 MG TABLET (FP) PO SCH (06:24)
[2019-01-15] MEDS: HEPARIN NA (PORCINE) 5,000 UNITS/ML 1ML VIAL SQ SCH (06:26)
[2019-01-15 07:55] VITALS: TEMP 98.2
--- NOTE | 2019-01-15 08:04 | PN ---
Progress Note (short form) - Note Progress Note: OB Follow Up PPD #8 pt was admitted on 01/13/19 for elevated BP , on MgSo4 since 11.00 PM on pt is asymptomatic, no c/o headache , no vomiting no c/o pain or cramps , bleeding minimal, not BF pt requests to go home Selected Entries 01/15/19 01/15/19 01/15/19 01:00 02:00 05:00 Temperature Pulse Rate Blood Pressure 138/100 133/89 117/75 01/15/19 01/15/19 01/15/19 06:00 06:59 07:53 Temperature 98.2 F Pulse Rate 94 H Blood Pressure 120/72 118/71 123/91 RS cta , SiS2 sinus rhythm Breast not engorged , soft P/a ut suprapubic 16 weeks size palpable , firm Lochia mininmal Reflexes n/n edema neg/neg Laboratory Tests 01/13/19 01/13/19 01/14/19 16:47 19:48 01:45 RBC Hgb Hct Plt Count Uric Acid Magnesium 3.9 H AST Urine Protein 3+ H U Random Total Protein 143.9 H Urine Creatinine 35.0 Protein/Creatinin Ratio 4.1 01/14/19 01/14/19 01/14/19 05:50 05:50 12:08 RBC 4.11 Hgb 11.6 Hct 34.6 Plt Count 309 Uric Acid 6.3 Magnesium 5.4 H 5.5 H AST 13 L Urine Protein U Random Total Protein Urine Creatinine Protein/Creatinin Ratio Pt on Po nifedipine 90 Xl, labetalol 100 mg po bid IV Mgso4 & pain meds vit ASS: : Post # day 8 ,,, preclempsia , severe elevation of BP s/p MgSo4 , prophylaxis >24 hrs , BP controlled Plan : d/c Mg So4 transfer to floor care observe for BP, management as per Dr Escamilla discharge when medical clearance
[2019-01-15 09:19] VITALS: BP 126/89; PULSE 92
--- NOTE | 2019-01-15 09:27 | DS ---
Physical Examination Vital Signs: Vital Signs Temperature 98.2 F 01/15/19 07:53 Pulse Rate 92 H 01/15/19 09:18 Respiratory Rate 18 01/15/19 09:18 Blood Pressure 126/89 01/15/19 09:18 O2 Sat by Pulse Oximetry (%) 100 01/15/19 07:54 Findings/Remarks: Patient is doing well, eager to go home. She denies ZAPIEN/vision change, CP, SOB, N /V, RUQ pain, leg edema Constitutional: Yes: Well Nourished, Calm Eyes: Yes: WNL HENT: Yes: Atraumatic, Normocephalic Neck: Yes: Supple Cardiovascular: Yes: Regular Rate and Rhythm Gastrointestinal: Yes: WNL, Soft ...Rectal Exam: Yes: Other (deferred) Renal/: Yes: Other (deferred) Breast(s): Yes: Other (deferred) Musculoskeletal: Yes: WNL Extremities: Yes: WNL Edema: Yes Edema: LLE: Trace, RLE: Trace Integumentary: Yes: WNL Neurological: Yes: Alert, Oriented, Other (2+DTR, no clonus) ...Motor Strength: WNL Psychiatric: Yes: Alert, Oriented Labs: CBC, BMP 01/14/19 05:50 01/14/19 05:50 Discharge Summary Problems reviewed: Yes Reason For Visit: POSTPARDUM HYPERTENSION Current Active Problems Pre-eclampsia Hospital Course: Patient was admitted to the hospital on PPD # 6 for Pre-eclampsia with severe features, BP in severe range requiring IV antihypertensives. She underwent 24hrs of magnesium seizure prophylaxis and BP has been controlled with PO medications. Patient is completely asymptomatic, stable labs, and no severe range BP for > 24 hours. Patient desires to be discharge home Plan of Treatment: Take medication as prescribed. Follow up with Washer Engineer tomorrow and health center within a week for BP check Condition: Stable - Instructions Diet, Activity, Other Instructions: Please take medications as prescribed and follow up shortly with medical consultant and OBGYNRichardson Gonzalez MD with any warning signs or symptoms. Referrals: Daniel Escamilla MD [Primary Care Provider] - Raimundo Puentes MD [Staff Physician] - Disposition: HOME - Home Medications Comprehensive Discharge Medication List: Ambulatory Orders Vits96/Iron Fum/Folic [ Tablet] 1 tab PO DAILY 01/06/19 Ibuprofen 600 mg PO Q6H PRN #30 tablet 01/09/19 Labetalol HCl [Normodyne -] 300 mg PO BID #28 tablet 01/09/19 Labetalol HCl 100 mg PO BID #14 tablet MDD 2 01/15/19 Nifedipine ER [Procardia XL -] 90 mg PO DAILY #7 tab.er.24 MDD 1 01/15/19
[2019-01-15] MEDS: MUPIROCIN 2% TOPICAL OINTMENT FOR DECOLONIZATION NS SCH (10:18)
[2019-01-15] MEDS: LABETALOL HCL 100 MG TABLET (FP) PO SCH (10:19)
[2019-01-15] MEDS: PRENATAL VITAMINS W/ FOLIC ACID TABLET (FP) PO SCH (10:19)
--- NOTE | 2019-01-15 11:08 | PN ---
Teaching Attending Note Name of Resident: Mathew Sheldon ATTENDING PHYSICIAN STATEMENT I saw and evaluated the patient. I reviewed the resident's note and discussed the case with the resident. I agree with the resident's findings and plan as documented. SUBJECTIVE: Pt seen and examined in the ICU. No overnight events. No current complaints. OBJECTIVE: Vital Signs Period Temp Pulse Resp BP Sys/Hunter Pulse Ox Last 24 Hr 98.2 F-98.9 F 68-99 15-20 101-143/58-100 100-100 Intake & Output 01/12/19 01/13/19 01/14/19 01/15/19 23:59 23:59 23:59 23:59 Intake Total 350 400 Output Total 1000 Balance -650 400 Weight 68.492 kg 71.804 kg 71.804 kg Gen: NAD at rest Heart: RRR Lung: decreased breath sounds at the bases Abd: soft, nontender Ext: no edema CBC, BMP 01/14/19 05:50 01/14/19 05:50 Active Medications Acetaminophen (Tylenol -) 650 mg PO Q3H PRN PRN Reason: PAIN Chlorhexidine Gluconate (Hibiclens For Decolonization -) 1 applic TP HS [facility] Last Admin: 01/14/19 22:01 Dose: 1 applic Heparin Sodium (Porcine) (Heparin -) 5,000 unit SQ TID [facility] Last Admin: 01/15/19 06:26 Dose: 5,000 unit Ibuprofen (Motrin -) 600 mg PO Q4H PRN PRN Reason: PAIN Labetalol HCl (Normodyne -) 100 mg PO BID [facility] Last Admin: 01/15/19 10:19 Dose: 100 mg Mupirocin (Bactroban Ointment (For Decolonization) -) 1 applic NS BID [facility] Stop: 01/19/19 09:59 Last Admin: 01/15/19 10:18 Dose: 1 applic Nifedipine (Procardia Xl -) 90 mg PO DAILY@0700 [facility] Last Admin: 01/15/19 06:24 Dose: 90 mg Multivit/Folic Acid/Iron ( Vitamins (Sjr) -) 1 tab PO DAILY [facility] Last Admin: 01/15/19 10:19 Dose: 1 tab ASSESSMENT AND PLAN: Pre-eclampsia - BP control - neuro checks - d/c planning
== END 2019-01-15 10:45 | disposition home or self-care (01) | DRG 561 ==
LOC: JER 16:05 → JERBED 19:10 → JICU 01-14 01:53
PROVIDERS: ADMIT Student in an Organized Health Care Education/Training Program; ATTEND Student in an Organized Health Care Education/Training Program
DX: O14.15 Severe pre-eclampsia, complicating the puerperium (principal); H05.223 Edema of bilateral orbit
CPT/HCPCS: 36415; 80053; 81003; 82570; 83605; 83615; 83735; 84156; 84550; 85025; 93005; 93010; 99285-25; J1644

== ENCOUNTER 2019-02-25 03:25 | Emergency (ER) | payer OTHER ==
--- NOTE | 2019-02-25 04:24 | PDOC ---
Attending Attestation - Resident Resident Name: Lisa Martinez - ED Attending Attestation I have performed the following: I have examined & evaluated the patient, The case was reviewed & discussed with the resident, I agree w/resident's findings & plan - HPI HPI: 02/25/19 20:02 see resident hpi - Physicial Exam PE: 02/25/19 20:02 agree with resident exam - Medical Decision Making 02/25/19 20:02 23-year-old female approximately 1-1/2 months with history of preeclampsia with multiple complaints including intermittent arm tingling, intermittent headache and shortness of breath Work-up is within normal limits Patient was asymptomatic on reevaluation, she is requesting to be discharged home and has agreed to follow-up with her [employer] WORK[employer] regarding blood pressure management She admittedly has been noncompliant with care plan She is accompanied by her significant other
[2019-02-25 04:55] VITALS: TEMP 98.1; BMI 23.1
--- NOTE | 2019-02-25 05:31 | PDOC ---
History of Present Illness - General Chief Complaint: Blood Pressure Problem Stated Complaint: ELEVATED BLOOD PRESSURE Time Seen by Provider: 02/25/19 04:20 - History of Present Illness Initial Comments: 02/25/19 04:54 HPI: 23 y/o F with hx of post- pre-eclampsia following delivery on 01/07/19 presenting with headache and elevated BP that started earlier today. She states she was following up with her ObGyn and was found to have elevated BP to 160s/ 90s. Stated she didnt want to come to the ED at the time and asked the tech not to tell the attending of the elevated BP. She continued home without any symptoms. However, around 1am, patient was in bed and began feeling palpitations , SOB, right arm numbness, and Giles. Symptoms caused patient to be scared and she started crying. Symptoms self resolved after 10 minutes without any intervention. GILES was 3/10 and right frontal. She denies any chest pain, LA, syncope, n/v, dysuria, abd pain, diaphoresis. PMHx: as noted above ROS: as noted SHx: Denies tobacco use; no alcohol use; no rec drugs Allergies: NKDA ROS: GENERAL/CONSTITUTIONAL: No fever or chills. No weakness. HEAD, EYES, EARS, NOSE AND THROAT: No ear pain or discharge. No sore throat. CARDIOVASCULAR: +shortness of breath RESPIRATORY: No cough, wheezing, or hemoptysis. GASTROINTESTINAL: No nausea, vomiting, diarrhea or constipation. GENITOURINARY: No dysuria, frequency, or change in urination. MUSCULOSKELETAL: No joint or muscle swelling or pain. No neck or back pain. SKIN: No rash NEUROLOGIC: +headache; no vertigo, loss of consciousness, or change in strength/ sensation. ENDOCRINE: No increased thirst. No abnormal weight change HEMATOLOGIC/LYMPHATIC: No anemia, easy bleeding, or history of blood clots. ALLERGIC/IMMUNOLOGIC: No hives or skin allergy. PE: GENERAL: Awake, alert, and fully oriented, no acute distress HEAD: No signs of trauma, normocephalic, atraumatic EYES: EOMI, sclera anicteric, conjunctiva clear ENT: Auricles normal inspection, hearing grossly normal, nares patent, oropharynx clear without exudates. Moist mucosa NECK: Normal ROM, no lymphadenopathy LUNGS: No increased work of breathing, symmetrical chest rise, clear to auscultation bilaterally, no wheezes, crackles or rhonchi HEART: Regular rate and rhythm, normal S1 and S2, no murmurs, peripheral pulses 2+ and equal bilaterally. ABDOMEN: Soft, nondistended, LLQ ttp, normoactive bowel sounds. No guarding, no rebound. No masses. left CVAT EXTREMITIES: Normal inspection, Normal range of motion, no edema. No clubbing or cyanosis. NEUROLOGICAL: Cranial nerves II through XII grossly intact. Normal speech, normal gait, no focal sensorimotor deficits SKIN: Warm, Dry, normal turgor, no rashes or lesions noted Past History - Past Medical History Allergies/Adverse Reactions: Allergies Allergy/AdvReac Type Severity Reaction Status Date / Time No Known Allergies Allergy Verified 02/25/19 03:59 Home Medications: Ambulatory Orders NK [No Known Home Medication] 02/25/19 Asthma: No Cancer: No Cardiac Disorders: No COPD: No Diabetes: No HTN: No Seizures: No Thyroid Disease: No - Psycho Social/Smoking Cessation Hx Smoking History: Never smoked Have you smoked in the past 12 months: No Information on smoking cessation initiated: No Hx Alcohol Use: No Drug/Substance Use Hx: No Hx Substance Use Treatment: No *Physical Exam - Vital Signs Last Vital Signs Temp Pulse Resp BP Pulse Ox 98.1 F 84 16 154/109 H 100 02/25/19 03:25 02/25/19 03:25 02/25/19 03:25 02/25/19 03:25 02/25/19 03:25 ED Treatment Course - LABORATORY CBC & Chemistry Diagram: 02/25/19 05:30 02/25/19 05:30 - RADIOLOGY Radiology Studies Ordered: Category Date Time Status HEAD CT WITHOUT CONTRAST [CT] Stat CT Scan 02/25/19 04:47 Ordered CHEST PA & LAT [RAD] Stat Radiology 02/25/19 04:48 Ordered Medical Decision Making - Medical Decision Making 02/25/19 05:50 23 y/o F with hx of post- pre-eclampsia following delivery on 01/07/19 presenting with headache and elevated BP that started earlier today associated with palpitatons, SOB, and right arm numbness -cbc, cmp, mg, trop, bnp, ekg, ct head, ua, tsh, coags, cxr 02/25/19 07:18 CT head with no acute pathology labs unremarkable patient doesnt want to wait for cxr discussed results and patient will followup with her pcp/obgyn for management of BP Discharge - Discharge Information Problems reviewed: Yes Clinical Impression/Diagnosis: Palpitations Headache Qualifiers: Headache type: unspecified Headache chronicity pattern: acute headache Intractability: not intractable Qualified Code(s): R51 - Headache High blood pressure Qualifiers: Hypertension type: unspecified Qualified Code(s): I10 - Essential (primary) hypertension Condition: Fair Disposition: HOME - Follow up/Referral - Patient Discharge Instructions Patient Printed Discharge Instructions: DI for High Blood Pressure, How to Monitor Your Blood Pressure at Home Additional Instructions: Please return to ED if there are new or concerning symptoms including worsening headache, fainting, worsening chest pain, shortness of breath Please followup with your primary care doctor and ObGyn for continued management of your blood pressure Print Language: MONEGASQUE - Post Discharge Activity
[2019-02-25 05:50] LABS: BASO % 1.1 % (0-2.0); EOS % 2.2 % (0-4.5); HEMATOCRIT 38.5 % (32.4-45.2); HEMOGLOBIN 12.5 GM/dL (10.7-15.3); LYMPH % 37.2 % (8-40); MCH 27.5 pg (25.7-33.7); MCHC 32.5 g/dl (32.0-36.0); MEAN CELL VOLUME 84.8 fl (80-96); MEAN PLT VOLUME 8.3 fl (7.5-11.1); NEUT % 52.5 % (42.8-82.8); PLATELET COUNT 268 K/MM3 (134-434); RBC 4.54 M/mm3 (3.60-5.2); RDW 15.1 % (11.6-15.6); WHITE BLOOD COUNT 8.3 K/mm3 (4.0-10.0)
[2019-02-25 06:17] LABS: ALBUMIN 3.8 g/dl (3.4-5.0); BILIRUBIN,TOTAL 0.1 mg/dL (0.2-1); BLOOD UREA NITROGEN 7.4 mg/dL (7-18); CREATININE 0.5 mg/dL (0.55-1.3); MAGNESIUM 2.1 mg/dL (1.8-2.4); POTASSIUM 4.2 mmol/L (3.5-5.1)
[2019-02-25 06:26] LABS: INR 1.06 (0.83-1.09); PROTHROMBIN TIME (PATIENT) 12.5 SEC (9.7-13.0)
[2019-02-25 06:36] LABS: URINE APPEARANCE CLEAR; URINE BILIRUBIN NEGATIVE (NEGATIVE); URINE COLOR YELLOW; URINE GLUCOSE (UA) NEGATIVE (NEGATIVE); URINE KETONE NEGATIVE (NEGATIVE); URINE LEUK ESTERASE NEGATIVE (NEGATIVE); URINE NITRITE NEGATIVE (NEGATIVE); URINE PROTEIN NEGATIVE (NEGATIVE)
[2019-02-25 06:56] VITALS: BP 141/98; PULSE 68
--- NOTE | 2019-02-25 10:20 | EKG ---
Test Reason : Blood Pressure : / mmHG Vent. Rate : 063 BPM Atrial Rate : 063 BPM P-R Int : 144 ms QRS Dur : 100 ms QT Int : 400 ms P-R-T Axes : 039 032 032 degrees QTc Int : 409 ms NORMAL SINUS RHYTHM WITH SINUS ARRHYTHMIA NORMAL ECG Confirmed by MD IVY, DAWOOD ([id number]) on 02/25/2019 10:19:47 AM Referred By: Confirmed By:DAWOOD HAYNES MD
== END 2019-02-25 07:37 | disposition home or self-care (01) ==
LOC: JER 03:25
DX: O16.5 Unspecified maternal hypertension, complicating the puerperium (principal); R00.2 Palpitations; R51 Headache
CPT/HCPCS: 36415; 70450-TC; 80053; 81003; 82550; 83735; 83880; 84443; 84484; 85025; 85610; 85730; 87086; 93005; 93010; 99283-25

== ENCOUNTER 2020-12-11 06:26 | Emergency (ER) | payer OTHER ==
[2020-12-11 06:45] VITALS: BMI 25.7
[2020-12-11] MEDS ORDERED: SODIUM CHLORIDE 1,000 ML IV STA (07:28)
[2020-12-11] MEDS ORDERED: ONDANSETRON 4 MG/2 ML VIAL IVPUSH ONE (07:28)
[2020-12-11] MEDS ORDERED: FAMOTIDINE 20 MG/50 ML IVPB 20 MG/50 ML MG IVPB ONE ×2 (07:28→07:34)
[2020-12-11] MEDS ORDERED: ACETAMINOPHEN 1000 MG/100 ML VIAL (NON FORMULARY) IVPB ONE (07:28)
[2020-12-11] MEDS ORDERED: ONDANSETRON 4 MG/2 ML VIAL ONE (07:33)
[2020-12-11] MEDS ORDERED: ACETAMINOPHEN INJECTION 100 ML IVPB ONE (07:52)
[2020-12-11 08:04] LABS: HEMATOCRIT 37.5 % (32.4-45.2); HEMOGLOBIN 12.4 GM/dL (10.7-15.3); MCH 27.4 pg (25.7-33.7); MCHC 33.1 g/dl (32.0-36.0); MEAN CELL VOLUME 82.8 fl (80-96); MEAN PLT VOLUME 8.3 fl (7.5-11.1); PLATELET COUNT 260 10^3/uL (134-434); RBC 4.52 M/mm3 (3.60-5.2); RDW 13.1 % (11.6-15.6); WHITE BLOOD COUNT 18.5 K/mm3 (4.0-10.0)
[2020-12-11 08:21] LABS: CHLORIDE 105 mmol/L (98-107); SODIUM 137 mmol/L (136-145)
[2020-12-11 08:24] LABS: ANION GAP 2 MMOL/L (8-16); BLOOD UREA NITROGEN 10.2 mg/dL (7-18); CALCIUM 8.3 mg/dL (8.5-10.1); CO2 29 mmol/L (21-32); GLUCOSE,RANDOM 96 mg/dL (74-106); LIPASE 112 U/L (73-393)
[2020-12-11 08:27] LABS: CREATININE 0.6 mg/dL (0.55-1.3); SGOT/AST 20 U/L (15-37); SGPT/ALT 17 U/L (13-61)
[2020-12-11 08:29] LABS: BILIRUBIN,TOTAL 0.4 mg/dL (0.2-1); TOT PROT 7.8 g/dl (6.4-8.2)
[2020-12-11 08:30] LABS: ALK PHOS 94 U/L (45-117)
[2020-12-11 09:26] LABS: URINE APPEARANCE CLEAR; URINE BILIRUBIN NEGATIVE (NEGATIVE); URINE COLOR YELLOW; URINE GLUCOSE (UA) NEGATIVE (NEGATIVE); URINE KETONE NEGATIVE (NEGATIVE); URINE LEUK ESTERASE NEGATIVE (NEGATIVE); URINE NITRITE NEGATIVE (NEGATIVE); URINE PROTEIN NEGATIVE (NEGATIVE); URINE UROBILINOGEN 0.2 mg/dL (0.2-1.0)
[2020-12-11 09:29] LABS: HCG,QUALITATIVE URINE Negative
[2020-12-11 10:58] VITALS: BP 113/78; PULSE 85; TEMP 98.2
[2020-12-11 11:00] LABS: ANISOCYTOSIS 0; HELMET CELLS 0; HOWELL-JOLLY BODIES 0; MACROCYTOSIS 0; OVALOCYTE 0; PLATELET ESTIMATE NORMAL; ROULEAU 0; SICKELED CELLS 0; TARGET CELLS 0; TEAR DROP CELLS 0; TOXIC GRANULATION 0
== END 2020-12-11 10:58 | disposition home or self-care (01) ==
LOC: JER 06:26
PROC: 3E0333Z Introduction of Anti-inflammatory into Peripheral Vein, Percutaneous Approach (ICD-10-PCS; principal; 2020-12-11)
PROC: 3E033GC Introduction of Other Therapeutic Substance into Peripheral Vein, Percutaneous Approach (ICD-10-PCS; 2020-12-11)
PROC: 3E033GC Introduction of Other Therapeutic Substance into Peripheral Vein, Percutaneous Approach (ICD-10-PCS; 2020-12-11)
PROC: 3E0337Z Introduction of Electrolytic and Water Balance Substance into Peripheral Vein, Percutaneous Approach (ICD-10-PCS; 2020-12-11)
DX: K52.9 Noninfective gastroenteritis and colitis, unspecified (principal)
CPT/HCPCS: 36415; 71046-TC-FY; 80053; 81003; 82550; 83690; 84484; 84703; 85025; 87086; 93005; 93010; 99285-25; C9803; J0131; U0003; U0005

== ENCOUNTER 2021-08-11 18:11 | Emergency (ER) | payer OTHER ==
[2021-08-11 18:45] VITALS: BP 133/91; PULSE 83; TEMP 98.1; BMI 29.2
[2021-08-11] MEDS ORDERED: ACETAMINOPHEN 500 MG TABLET (FP) ONE (21:12)
[2021-08-11] MEDS ORDERED: ACETAMINOPHEN 500 MG TABLET (FP) PO ONE (21:14)
== END 2021-08-11 22:08 | disposition left against medical advice (07) ==
LOC: JER 18:11
DX: R68.89 Other general symptoms and signs (principal)
CPT/HCPCS: 84703; 99283-25

== ENCOUNTER 2021-08-13 18:13 | Emergency (ER) | payer OTHER ==
[2021-08-13 18:19] VITALS: BP 124/76; PULSE 83; TEMP 98; BMI 28.3
[2021-08-13 19:35] LABS: INR 1.1 (0.83-1.09); PROTHROMBIN TIME (PATIENT) 12.7 SEC (9.7-13.0)
[2021-08-13 19:38] LABS: ACTIVATED PTT 34.3 SECONDS (25.2-36.5)
[2021-08-13 19:51] LABS: HEMATOCRIT 37.9 % (32.4-45.2); HEMOGLOBIN 12.8 G/dL (10.7-15.3); MCH 27.8 pg (25.7-33.7); MCHC 33.9 g/dl (32.0-36.0); MEAN CELL VOLUME 82.3 fl (80-96); MEAN PLT VOLUME 8.2 fl (7.5-11.1); RBC 4.61 10^6/uL (3.60-5.2); RDW 14.4 % (11.6-15.6); WHITE BLOOD COUNT 8.1 10^3/uL (4.0-10.8)
[2021-08-13 19:54] LABS: ALBUMIN 4.1 g/dl (3.4-5.0); BILIRUBIN,TOTAL 0.3 mg/dl (0.2-1); CALCIUM 9.4 mg/dl (8.5-10); CREATININE 0.5 mg/dl (0.55-1.3); TOT PROT 7.1 g/dl (6.4-8.2)
[2021-08-13 19:55] LABS: PLATELET ESTIMATE ADEQUATE
== END 2021-08-13 20:49 | disposition home or self-care (01) ==
LOC: FER 18:13
DX: R07.89 Other chest pain (principal)
CPT/HCPCS: 36415; 71046-TC-FY; 71275-TC; 80053; 81025; 85025; 85610; 85730; 93005; 99285-25; Q9967

== ENCOUNTER 2021-10-13 07:43 | Emergency (ER) | payer OTHER ==
[2021-10-13 07:53] VITALS: BP 134/101; PULSE 79; TEMP 98.8; BMI 27.9
[2021-10-13] MEDS ORDERED: IBUPROFEN 600 MG TABLET (FP) PO ONE ×2 (08:00→08:06)
== END 2021-10-13 08:37 | disposition home or self-care (01) ==
LOC: FER 07:43
DX: R05.9 Cough, unspecified (principal); R50.9 Fever, unspecified; J06.9 Acute upper respiratory infection, unspecified
CPT/HCPCS: 0241U-QW; 99283-25

== ENCOUNTER 2022-08-20 21:41 | Emergency (ER) | payer OTHER ==
[2022-08-20 22:00] VITALS: BP 145/97; PULSE 89; RESP 20; TEMP 98.2; BMI 28.8
[2022-08-20] MEDS ORDERED: LIDOCAINE PATCH REMOVAL MC SCH (22:00)
[2022-08-20] MEDS ORDERED: LIDOCAINE 5% TOPICAL PATCH TP ONE (23:18)
[2022-08-20] MEDS ORDERED: LIDOCAINE 5% TOPICAL PATCH ONE (23:27)
== END 2022-08-20 23:42 | disposition home or self-care (01) ==
LOC: JER 21:41
DX: M94.0 Chondrocostal junction syndrome [Tietze] (principal)
CPT/HCPCS: 71046-TC-FY; 93005; 93010; 99283-25